=== PATIENT | female | born 1975 | race Caucasian/White ===

== ENCOUNTER → 2018-01-08 15:05 | Outpatient (CLI) | payer MEDICARE, SELFPAY ==
[2018-01-08 15:51] LABS: Absolute Lymphocyte Count 3.75 X10^3/ul (0.83-4.51); Absolute Neutrophil Count 5.1 X10^3/uL (2.0-7.7); Basophil# 0.03 X10^3/uL; Basophil% 0.3 % (0-1); Eosinophil# 0.21 X10^3/uL; Eosinophils% 2.2 % (0-5); Hematocrit 38.8 % (37-47); Hemoglobin 12.5 g/dl (12.0-15.0); Lymphocyte # 3.75 X10^3/ul (4.0); Lymphocyte % 38.9 % (19-41); Mean Corp Hgb Conc 32.2 g/gl (32-36); Mean Corpuscular Hgb 26.6 pg (27.0-32.0); Mean Corpuscular Volume 82.6 fL (81-99); Mean Platelet Vol. 9.4 fl (6.2-12.0); Monocyte# 0.58 X10^3/uL; Neutrophil # 5.06 X10^3/uL (2.7-7.7); Neutrophil % 52.4 % (47-70); POSITIVE COUNT NO; POSITIVE DIFFERENTIAL NO; POSITIVE MORPHOLOGY NO; Platelet Count 305 K/mm3 (150-450); RBC Distribution Width CV 14.9 % (11.6-14.6); RBC Distribution Width SD 45.7 fl (35.1-43.9); White Blood Count 9.7 K/mm3 (4.4-11.0)
[2018-01-08 16:15] LABS: Anion Gap 9 (5-15); BUN 10 mg/dL (7-18); BUN/Creat Ratio 10.3 RATIO (10-20); Chloride 106 mmol/L (98-107); Creatinine, Serum 0.98 mg/dL (0.55-1.02); EST Glomerular Filtration Rate 67 mL/min (>60); Est Glom Filt Rate - Afr Amer 81 mL/min (>60); Free T3 3.5 pg/mL (2.18-3.98); Glucose 91 mg/dL (74-106); Potassium 3.9 mmol/L (3.5-5.1); Sodium Level 141 mmol/L (136-145); T4 Total, Thyroxin 14.8 ug/dL (4.8-13.9); Thyroid Stim Hormone (TSH) 1.12 uIU/mL (0.358-3.74)
== END ==
PROVIDERS: Family Provider Family Medicine; PCP Family Medicine; Visit Provider Family Medicine
DX: E03.9 Hypothyroidism, unspecified (principal); R53.83 Other fatigue
CPT/HCPCS: 36415; 80048; 84436; 84443; 84481; 85025

== ENCOUNTER → 2018-07-06 15:02 | Outpatient (CLI) | payer MEDICARE, SELFPAY ==
--- NOTE | 2018-07-06 15:09 | RAD_ITS ---
STUDY: X-RAY - BILATERAL HIPS WITHOUT PELVIS REASON FOR EXAM: Female, 42 years old. Pain TECHNIQUE: 2 views of the right hip, and 2 views of the left hip were obtained. COMPARISON: None. FINDINGS: Right Hip: Normal right femoral head, neck, intertrochanteric region and visualized proximal femur. Normal right acetabulum. Normal right hip joint. Left Hip: Normal left femoral head, neck, intertrochanteric region and visualized proximal femur. Normal left acetabulum. Normal left hip joint. Normal bilateral superior and inferior pubic rami , ischial tuberosities and pubic symphysis. RAD/Hips B/L min 2 views w/ Pelvis IMPRESSION: Normal x-ray examination of the right hip. No fracture Normal x-ray examination of the left hip. No fracture Electronically Signed: Carlos Gordon MD at 6:06 EST Tel , Service support ,
== END ==
PROVIDERS: Family Provider Family Medicine; PCP Family Medicine; Referring Provider Family Medicine; Visit Provider Family Medicine
DX: M25.552 Pain in left hip (principal)
CPT/HCPCS: 73521

== ENCOUNTER → 2018-11-09 14:38 | Outpatient (CLI) | payer MEDICARE, SELFPAY ==
[2018-11-09 16:20] LABS: T4 Total, Thyroxin 11.7 ug/dL (4.8-13.9); Thyroid Stim Hormone (TSH) 7.88 uIU/mL (0.358-3.74)
== END ==
PROVIDERS: Family Provider Family Medicine; PCP Family Medicine; Referring Provider Family Medicine; Visit Provider Family Medicine
DX: E03.9 Hypothyroidism, unspecified (principal)
CPT/HCPCS: 36415; 84436; 84443; 84481

== ENCOUNTER → 2019-11-11 11:09 | Outpatient (CLI) | payer MEDICARE, SELFPAY ==
[2019-11-11 12:57] LABS: Cholesterol 245 mg/dL (200); Free T3 3.4 pg/mL (2.18-3.98); High Density Lipoprotein 50 mg/dL; Triglycerides 172 mg/dL; Very Low Density Lipoprotein 34 mg/dL (5-40)
== END ==
PROVIDERS: PCP Family Medicine; Visit Provider Family Medicine
DX: Z00.00 Encounter for general adult medical examination without abnormal findings (principal); E03.9 Hypothyroidism, unspecified
CPT/HCPCS: 36415; 80061; 84436; 84443; 84481

== ENCOUNTER → 2019-12-13 11:29 | Outpatient (CLI) | payer MEDICARE, SELFPAY ==
[2019-12-13 15:35] LABS: Thyroid Stim Hormone (TSH) 1.02 uIU/mL (0.358-3.74)
== END ==
PROVIDERS: PCP Family Medicine; Visit Provider Family Medicine
DX: E03.9 Hypothyroidism, unspecified (principal)
CPT/HCPCS: 36415; 84443

== ENCOUNTER → 2020-05-31 10:02 | Outpatient (CLI) | payer MEDICARE, SELFPAY ==
[2020-05-31 13:13] LABS: Anion Gap 8 (5-15); BUN 12 mg/dL (7-18); BUN/Creat Ratio 13.4 RATIO (10-20); Calcium,Total 9.5 mg/dL (8.5-10.1); Chloride 106 mmol/L (98-107); Cholesterol 214 mg/dL (200); Creatinine, Serum 0.89 mg/dL (0.55-1.02); EST Glomerular Filtration Rate 73 mL/min (>60); Est Glom Filt Rate - Afr Amer 88 mL/min (>60); Free T3 3.7 pg/mL (2.18-3.98); Glucose 100 mg/dL (74-106); High Density Lipoprotein 53 mg/dL; Potassium 3.8 mmol/L (3.5-5.1); Sodium Level 140 mmol/L (136-145); T4 Free Direct 1.49 ng/dL (0.76-1.46); Thyroid Stim Hormone (TSH) 0.14 uIU/mL (0.358-3.74); Triglycerides 233 mg/dL; Very Low Density Lipoprotein 47 mg/dL (5-40)
== END ==
PROVIDERS: PCP Family Medicine; Referring Provider Family Medicine; Visit Provider Family Medicine
CPT/HCPCS: 36415; 80048; 80061; 84439; 84443; 84481

== ENCOUNTER → 2020-12-11 10:51 | Outpatient (CLI) | payer MEDICARE, SELFPAY ==
[2020-12-11 13:21] LABS: Free T3 2.9 pg/mL (2.18-3.98); T4 Free Direct 1.27 ng/dL (0.76-1.46); Thyroid Stim Hormone (TSH) 0.56 uIU/mL (0.358-3.74)
== END ==
PROVIDERS: PCP Family Medicine; Visit Provider Family Medicine
DX: E03.9 Hypothyroidism, unspecified (principal)
CPT/HCPCS: 36415; 84439; 84443; 84481

== ENCOUNTER → 2021-06-13 10:58 | Outpatient (CLI) | payer MEDICARE, SELFPAY ==
--- NOTE | 2021-06-13 11:15 | RAD_ITS ---
STUDY: X-RAY - PELVIS AND BILATERAL HIPS REASON FOR EXAM: Female, 45 years old. Right hip pain. TECHNIQUE: AP view of the pelvis.? 2 views of the right hip, and 2 views of the left hip were obtained. COMPARISON: 07/06/2018. FINDINGS: There is a non-specific bowel gas pattern. Normal visualized soft tissue structures. Normal bilateral iliac wings, sacroiliac joints and visualized sacrum. Normal bilateral superior and inferior pubic rami. Normal pubic symphysis. Normal bilateral ischial tuberosities. Normal visualized right femoral head. Normal right acetabulum. Normal right hip joint. Normal visualized left femoral head. Normal left acetabulum. Normal left hip joint. RAD/Hips B/L min 2 views w/ Pelvis IMPRESSION: No interval change. No abnormality present. Electronically Signed: De Sanchez MD at 13:04 EDT , Service support ,
[2021-06-13 12:34] LABS: Free T3 3.6 pg/mL (2.18-3.98); T4 Total, Thyroxin 17.1 ug/dL (4.8-13.9); Thyroid Stim Hormone (TSH) 0.05 uIU/mL (0.358-3.74)
== END ==
PROVIDERS: PCP Family Medicine; Referring Provider Family Medicine; Visit Provider Family Medicine
DX: M25.551 Pain in right hip (principal); E03.9 Hypothyroidism, unspecified
CPT/HCPCS: 36415; 73521; 84436; 84443; 84481

== ENCOUNTER 2021-11-01 11:44 | Outpatient (CLI) | payer MEDICARE, SELFPAY ==
[2021-11-01 15:55] LABS: Free T3 2.6 pg/mL (2.18-3.98); T4 Free Direct 1.54 ng/dL (0.76-1.46); Thyroid Stim Hormone (TSH) 0.26 uIU/mL (0.358-3.74)
== END 2021-11-01 23:59 | disposition home or self-care (01) ==
LOC: MFPLAB 11:48
PROVIDERS: PCP Family Medicine; Referring Provider Family Medicine; Visit Provider Family Medicine
DX: E03.9 Hypothyroidism, unspecified (principal)
CPT/HCPCS: 36415; 84439; 84443; 84481

== ENCOUNTER → 2022-03-04 | Outpatient (CLI) | payer MEDICARE, SELFPAY ==
--- NOTE | 2022-03-04 11:02 | RAD_ITS ---
STUDY: X-RAY - RIGHT KNEE REASON FOR EXAM: Female, 46 years old. PAIN TECHNIQUE: 4 view(s) of the knee. COMPARISON: Comparison is made with prior study dated 11/18/2016. FINDINGS: Normal visualized distal femur. Normal visualized proximal tibia and fibula. Normal proximal tibiofibular articulation. There is mild degenerative arthrosis of the medial femorotibial compartment. Normal lateral femorotibial compartment. Normal patellofemoral articulation. Small joint effusion. RAD/Knee 4 or More Views IMPRESSION: Degenerative arthrosis. Small joint effusion. Electronically Signed: Carlitos Hickman MD at 13:01 EDT ,
[2022-03-04 12:47] LABS: Free T3 2.9 pg/mL (2.18-3.98); T4 Free Direct 1.36 ng/dL (0.76-1.46); Thyroid Stim Hormone (TSH) 0.07 uIU/mL (0.358-3.74)
== END | disposition home or self-care (01) ==
PROVIDERS: PCP Family Medicine; Referring Provider Family Medicine; Visit Provider Family Medicine
DX: M25.561 Pain in right knee (principal); E03.9 Hypothyroidism, unspecified
CPT/HCPCS: 36415; 73564; 84439; 84443; 84481

== ENCOUNTER → 2022-09-02 | Outpatient (CLI) | payer MEDICARE, SELFPAY ==
[2022-09-02 12:45] LABS: Free T3 3.2 pg/mL (2.18-3.98); T4 Free Direct 1.25 ng/dL (0.76-1.46)
== END | disposition home or self-care (01) ==
LOC: MFPLAB 10:15
PROVIDERS: PCP Family Medicine; Visit Provider Family Medicine
DX: E03.9 Hypothyroidism, unspecified (principal)
CPT/HCPCS: 36415; 84439; 84443; 84481

== ENCOUNTER → 2022-09-18 | Outpatient (CLI) | payer MEDICARE, SELFPAY ==
--- NOTE | 2022-09-18 07:21 | MRI_ITS ---
STUDY: MRI RIGHT KNEE REASON FOR EXAM: Female, 46 years old. RIGHT KNEE PAIN,POPPING/CRACKING TECHNIQUE: Standardized fat and water weighted pulse sequences were obtained in all 3 orthogonal planes. COMPARISON: X-ray of the right knee dated March 04, 2022 FINDINGS: A small radial tear is present at the free edge of the body of the medial meniscus. A second radial tear is present in the root insertion of the posterior horn of medial meniscus. There is also partial subluxation of the body of the medial meniscus out of the joint due to moderate joint space narrowing. There is also irregularity of the meniscal tissue in the posterior horn with mild intrasubstance signal abnormality. There is diffuse, greater than 50% thickness articular cartilage loss of the medial femorotibial compartment. Normal medial femoral condyle and tibial plateau. Normal medial collateral ligamentous complex (MCL). Normal distal semimembranosus, gracilis and semitendinosus tendons. Normal lateral meniscus. Normal hyaline cartilage of the lateral femorotibial compartment. Normal lateral femoral condyle and tibial plateau. Normal proximal tibiofibular articulation. Normal lateral collateral (fibular) ligament. Normal popliteus tendon. Normal biceps femoris tendon. The anterior cruciate ligament (ACL) is diffusely thinned but is intact and without evidence of a tear. Normal posterior cruciate ligament (PCL). Normal congruent patellofemoral articulation. There is diffuse, less than 50% thickness articular cartilage loss of the patellofemoral compartment. Normal medial and lateral patellar retinaculum. Normal quadriceps tendon. Normal patellar tendon. Normal Hoffa''s fat pad. There is a small volume joint effusion. The soft tissues are unremarkable. The otherwise visualized osseous structures are unremarkable. MRI/Lower Ext Joint Only (Routine) IMPRESSION: 1. Several radial tears of the body and posterior horn of medial meniscus with intrasubstance degeneration and meniscal tissue irregularity. 2. Moderate narrowing in the medial compartment 3. The anterior cruciate ligament (ACL) is diffusely thinned but is intact and without evidence of a tear. Electronically Signed: Toño Mirza MD at 11:02 EST ,
== END | disposition home or self-care (01) ==
LOC: MRI 07:21
PROVIDERS: PCP Family Medicine; Referring Provider Family Medicine; Visit Provider Family Medicine
DX: M25.561 Pain in right knee (principal)
CPT/HCPCS: 73721

== ENCOUNTER 2022-11-13 05:39 | Day surgery (SDC) | payer MEDICARE, SELFPAY ==
[2022-11-13] VITALS (10 sets, daily range): BP systolic 108–156; BP diastolic 69–98; PULSE 71–85; RESP 14–20; TEMP 36.1–36.8; O2SAT 94–100; BMI 39.3
[2022-11-13] MEDS: Lactated Ringers 1,000 ML 15 ML IV (06:33)
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
[2022-11-13] MEDS: Cefazolin 2 GM in 0.9% Normal Saline 100 ML IV (07:29)
[2022-11-13] MEDS: Epinephrine (1 mg/ml) 1 MG/ML VIAL OPERA.SITE (08:10)
[2022-11-13] MEDS: Bupivacaine 0.25% 30 ML Vial OPERA.SITE (08:13)
--- NOTE | 2022-11-13 08:16 | DCINST_ITS ---
Discharge Instructions Diet Discharge Diet: No restrictions Activity Discharge Activity: Return to Normal Activity and Use Crutches Ice area for (Minutes): 15 Weight Bearing Status: Weight bearing as tolerated Dressing / Incision Call your doctor if your incision/area has: Continuous Slow Oozing, Sudden Increased Bleeding, Increased Pain/ Swelling, Increased Redness, Foul Smelling Discharge and Swelling at the incision site Change Dressing in: leave in place till F/U Follow Up Care Please Follow Up With: Darius Newell MD When: 2 days Test Results: Test results from this visit will be discussed in further detail at your follow- up appointment, if applicable. Discharge Plan Admission Attending Provider: Daruis Newell Primary Care Provider: Cedric Zimmer Instructions Patient Instructions: After Knee Arthroscopy Discharge Orders/Prescriptions Prescriptions: New oxycodone-acetaminophen [Percocet] 5-325 mg tablet 1 tab PO Q4H MDD 6 PRN (Reason: pain) 5 Days Qty: 20 0RF No Action levothyroxine 137 mcg capsule 137 mcg PO DAILY meloxicam 15 mg tablet 15 mg PO DAILY Referrals / Follow Up: Cedric Zimmer MD [Primary Care Provider] - Darius Newell MD [Med Staff - Active Staff] - Disposition Disposition (needs filled in before D/C Order can be placed): Home, Self Care
--- NOTE | 2022-11-13 08:21 | OP.PCM_ITS ---
Problems Associated Problem List Diagnoses (1) Tear of medial meniscus of right knee: (2) Osteoarthritis of right knee: Report of Operation Date of Procedure: 11/13/22 Pre-Operative Diagnosis: Right knee medial meniscus tear and osteoarthritis Post-Operative Diagnosis: Same Surgery/Procedure Performed:: Right knee arthroscopy partial medial meniscectomy and debridement Surgeon: Darius Newell Type of Anesthesia: General and Local Anesthesiologist: Jorden Mena Estimated Blood Loss (mL): 10 Description of Procedure: Patient brought to the operating room theater. Placed supine on the operating room table. Stress positioner to the right side. Tourniquet applied 34 inches the right thigh appropriately padded. SCD on the nonoperative leg all bony prominences padded. 2 g IV Ancef administered prior to the start of the procedure. Lower extremity prepped and draped in the usual sterile fashion on with chlorhexidine-based prep solution allowing over 3 minutes drying time prior to draping. General anesthesia induced. Preoperative timeout performed to confirm the site patient and the surgery. Began by elevating the limb inflating the tourniquet to 250 mmHg. Made standard anterolateral and anteromedial arthroscopy portals. Examined the full intra- articular extent of the knee. Medial and lateral gutters entered no loose bodies. Slight fraying undersurface mid aspect proximally at the patella undersurface gently debrided. Trochlear groove appeared normal. Patella centered. Cartilage in the lateral side of the knee was normal, normal lateral meniscus was stable to probing. Ligamentum mucosum debrided removed ACL and PCL exam and stable to probing. Exam of the medial compartment. Grade 1-2 changes on the femur and tibial sides. Diffuse changes no obvious full-thickness chondral defects. Medial meniscus matched with the MRI findings of a radial flap tear at the anterior one third of the medial meniscus. I debrided that to stable margins took arthroscopy pictures throughout. There is also a vertically oriented longitudinal tear at the mid to posterior one third. This was slightly unstable and along the inner third therefore elected to perform partial medial meniscectomy for that tear. Rest of the meniscus was normal. I did a Gillquist view the posterior root was intact. Knee thoroughly irrigated. Meniscus was stable to probing. I ensure there is no flipped fragments of the medial meniscus below the joint line. Case terminated tourniquet let down wounds cleaned with wet and dry dressing 10 cc of quarter percent bupivacaine around the incision sites. Incisions clean and was closed with 3-0 Monocryl sutures Steri-Strips Adaptic 4 x 4 gauze ABD dressings and 6 inch Nicholas bandage sterile applied loosely wrapped. Patient woken up from the general anesthetic transferred off the operating room table and taken to postanesthetic care unit in stable condition. All sponge needle instrument counts were correct no complications plan for the patient weightbearing as tolerated on crutches follow-up in the office in 2 days time narcotic counseling given and prescription sent in as well.
[2022-11-13] MEDS: HYDROcodone Bitartrate/Apap 5/325 Tablet PO (10:15)
== END 2022-11-13 11:05 | disposition home or self-care (01) ==
LOC: SDC 05:40 → AC 05:41
PROVIDERS: PCP Family Medicine; Referring Provider Orthopaedic Surgery Sports Medicine; Visit Provider Orthopaedic Surgery Sports Medicine
PROC: (CPT 29870; principal; 2022-11-13 07:10)
DX: S83.241A Other tear of medial meniscus, current injury, right knee, initial encounter (principal); M17.11 Unilateral primary osteoarthritis, right knee; V89.2XXS Person injured in unspecified motor-vehicle accident, traffic, sequela; E03.9 Hypothyroidism, unspecified; Z79.1 Long term (current) use of non-steroidal anti-inflammatories (NSAID); Z79.890 Hormone replacement therapy; Z87.891 Personal history of nicotine dependence
CPT/HCPCS: 29881; J7120; J2405

== ENCOUNTER → 2023-07-04 | Outpatient (CLI) | payer MEDICARE, SELFPAY ==
[2023-07-04 13:21] LABS: ALB/GLOB Ratio 0.8 RATIO (0.9-2.4); AST(SGOT) 15 U/L (15-37); Alanine Aminotransfer ALT/SGPT 27 U/L (13-56); Albumin, Serum 3.6 g/dL (3.2-5.0); Alkaline Phosphatase 98 U/L (45-117); Anion Gap 7 (5-15); BUN 14 mg/dL (7-18); BUN/Creat Ratio 18.2 RATIO (10-20); Calcium,Total 9.1 mg/dL (8.5-10.1); Chloride 104 mmol/L (98-107); Cholesterol 239 mg/dL (200); Creatinine, Serum 0.77 mg/dL (0.55-1.02); EST Glomerular Filtration Rate 85 mL/min (>60); Est Glom Filt Rate - Afr Amer 103 mL/min (>60); Free T3 2.9 pg/mL (2.18-3.98); Globulin 4.4 g/dL (2.2-4.2); Glucose 82 mg/dL (74-106); High Density Lipoprotein 52 mg/dL; Sodium Level 138 mmol/L (136-145); T4 Free Direct 1.09 ng/dL (0.76-1.46); Thyroid Stim Hormone (TSH) 3.89 uIU/mL (0.358-3.74); Triglycerides 204 mg/dL; Very Low Density Lipoprotein 41 mg/dL (5-40)
== END | disposition home or self-care (01) ==
LOC: MFPLAB 09:49
PROVIDERS: PCP Family Medicine; Visit Provider Family Medicine
DX: E03.9 Hypothyroidism, unspecified (principal); E78.5 Hyperlipidemia, unspecified
CPT/HCPCS: 36415; 80053; 80061; 84439; 84443; 84481

== ENCOUNTER → 2023-10-02 | Outpatient (CLI) | payer MEDICARE, MEDICAID, SELFPAY ==
--- OUTSIDE RECORDS SUMMARY | 2023-10-02 13:11 | XMS RPT_ITS | CCD ---
Author Name Unknown Address [address] [place] [address] Organization [facility] Care Team Providers Care Stepdown Nurse Name Role Phone MARGOTH DARBY Admitting Unavailable MARGOTH DARBY Attending Unavailable NO, DOCTOR ON Referring Unavailable MARGOTH DARBY Primary Care Unavailable NO, DOCTOR ON Consulting Unavailable Unavailable Primary Care Provider MD NEHEMIAS Menendez Attending Unavailable ELAN MULLER, DR. CEDRIC Chong Primary Care Unavaila SIDNEY Nation DO Attending Unavailable ELAN MULLER, DR. CEDRIC Chong Primary Care Unavaila CESAR Covarrubias Consulting Unavailable ELAN MULLER, DR. CEDRIC Chong Primary Care Unavaila MILTON Lui Attending Unavailable Cedric Ansari MD Primary Care Provider CEDRIC ANSARI Primary Care Unavailable JAH SOL (PA-C) Attending Unavail able Unavailable Primary Care Provider Unavailabl e Unavailable Primary Care Provider Unavailedwina e Allergies Allergy Classification Reported Allergen(s) Allergy Type Date of Onset Reaction(s) Facility (1 source) traM[facility]ol Drug Allergy [facility] Repository (1 source) traMADol Drug Allergy [facility] Repository (2 sources) Amoxicillin / Clavulanate; Translations: [AMOXICILLIN-POT CLAVULANATE] Drug Allergy 07-19-2022 GI Upset [facility] Medications Current Medications Medication Drug Class(es) Dates Sig (Normalized) Sig (Original) chlorhexidine gluconate 1.2 mg/ml mouthwash (3 sources) Start: 10-15-2018 take 15 mL by mouth twice daily chlorhexidine (PERIDEX) 0.12 % oral solution Indications: Irregular alveolar process of jaw , Torus mandibularis Take 15 mL by mouth 2 times daily. 1 Bottle 3 10/15/2018 Active levothyroxine sodium 0.2 mg oral tablet (5 sources) l-Thyroxine take 1 tablet by mouth once daily levothyroxine (SYNTHROID) 200 MCG tablet Take 200 mcg by mouth daily. 0 Active Completed/Discontinued Medications Medication Drug Class(es) Dates Sig (Normalized) Sig (Original) benzonatate 100 mg oral capsule (1 source) Non-narcotic Antitussive Start: 07-19-2022 take 2 capsules by mouth every eight hours as needed benzonatate (TESSALON PERLES) 100 mg capsule Take 2 capsules by mouth three times daily as needed for cough. 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-2018 Episodic Other connective tissue disease (1 source) Tibialis tendinitis; Translations: [Posterior tibial tendinitis, unspecified leg] Onset: 06-29-2012 06-29-2012 Episodic Other non-traumatic joint disorders (1 source) Ankle pain; Translations: [Pain in unspecified ankle and joints of unspecified foot] Onset: 06-29-2012 06-29-2012 Episodic Results Test Name Value Interpretation Reference Range Facil ity Vital Signs Date Time Vital Sign Value Performing Clinician Faci lity 07-19-2022 15:48-0500 Body temperature 99.19 [degF] Jah Sol PA-C Work Phone: [facility] 07-19-2022 15:48-0500 Body weight 98.43 kg Jah Sol PA-C Work Phone: [facility] 07-19-2022 15:48-0500 Diastolic blood pressure 76 mm[Hg] Jah Sol PA-C Work Phone: [facility] 07-19-2022 15:48-0500 Heart rate 98 /min Jah Sol PA-C Work Phone: [facility] 07-19-2022 15:48-0500 Respiratory rate 18 /min Jah Sol PA-C Work Phone: [facility] 07-19-2022 15:48-0500 SaO2% (BldA) [Mass fraction] 98 % Jah Sol PA-C Work Phone: [facility] 07-19-2022 15:48-0500 Systolic blood pressure 143 mm[Hg] Jah Sol PA-C Work Phone: [facility] Encounters Encounter Date Encounter Type Care Provider Facility Start: 11-25-[address] [facility] Start: 08-27-2022 Letter encounter [facility] nohemi Start: 07-19-2022 End: 07-19-2022 ambulatory CEDRIC ANSARI Facility:[id number] Start: 07-19-2022 End: 07-19-2022 Office outpatient visit 15 minutes Jah Newell) Sweta MANN Work Phone: [facility] Plan of Treatment Date Care Activity Detail Author Start: 11-22-2025 Shingles (RZV) Vacci ne (1 of 2) Shingles (RZV) Vaccine (1 of 2) [facility] Start: 05-14-2024 LIPID SCREEN LIPID SCREEN [facility] Start: 05-18-2022 Influenza vaccination Influenza Vacc ine (#1) [facility] Start: 05-14-2022 DIABETES SCREEN DIABETES SCREEN [facility] Start: 10-18-2021 COVID-19 Vaccine (4 - Booster for Pfizer series) COVID-19 Vaccine (4 - Booster for Pfizer series) [facility] Start: 08-18-2021 DEPRESSION ASSESSMENT DEPRESSION ASS ESSMENT [facility] Start: 11-22-2020 Cholesterol [Mass/vo lume] in Serum or Plasma Cholesterol [facility] Start: 11-22-2020 COLOGUARD (FIT-DNA) COLOGUARD (FIT-D NA) [facility] Start: 11-22-2020 Colonoscopy COLONOSCOPY [facility] Start: 11-22-2020 COLORECTAL CANCER SCREENING COLORECTAL CANCER SCREENING [facility] Start: 11-22-[address] COLONOGRAPHY [facility] Start: 11-22-2020 FECAL OCCULT BLOOD FECAL OCCULT BLOO D [facility] Start: 11-22-2020 Screening for malign ant neoplasm of colon [facility] Start: 11-22-2020 SIGMOIDOSCOPY SIGMOIDOSCOPY [facility] Start: 05-18-2019 Annual wellness visit Annual W ellness Visit ([id number]) [facility] Start: 2015 Mammography MAMMOGRAM [facility] Start: 2015 Screening for malign ant neoplasm of breast Mammography [facility] Start: 11-22-2005 HPV TESTING HPV TESTING [facility] Start: 11-22-1996 PAP TESTING PAP TESTING [facility] Start: 11-22-1996 Screening for malign ant neoplasm of cervix Pap Smear [facility] Start: 11-22-1994 Urine microalbumin profile DTAP,TDAP ,TD (1 - Tdap) [facility] Start: 11-22-1993 Hepatitis C screening Hepatitis C An tibody [facility] Start: 11-22-1993 HEPATITIS C SCREENING HEPATITIS C SC REENING [facility] Start: 11-22-1993 HIV SCREENING HIV SCREENING [facility] Start: 11-22-1993 Tetanus + diphtheria + acellular pertussis vaccine (product) Tdap Booster [facility] Start: 11-22-1990 HIV screening HIV Test [facility] Start: 11-22-1981 PNEUMOCOCCAL (1 - PCV) PNEUMOCOCCAL (1 - PCV) [facility] Start: 1975 HEPATITIS B (1 of 3 - 3-dose series) HEPATITIS B (1 of 3 - 3-dose series) [facility] Start: 1975 Screening for malign ant neoplasm of colon Colonoscopy [facility] Immunizations Immunization Date Immunization Notes Care Provider Fa cility 05-31-2020 influenza, injectabl e, quadrivalent, preservative free [facility] 05-31-2020 influenza virus vacc ine, unspecified formulation [facility] 05-12-2019 influenza, seasonal, injectable [facility] 07-09-2017 influenza, injectabl e, quadrivalent, contains preservative [facility] 06-07-2015 [facility] Payers Date Payer Category Payer Unknown [id number] 2021 Private Health Insurance [id number] 2018 Medicaid [id number] 2018 Medicare [id number] 1975 Unknown [id number] 1975 Unknown [id number] 1975 Unknown [id number] 1975 Unknown [id number] Medicaid [id number] Social History Date Type Detail Facility Start: 08-28-2018 End: 09-18-2018 Tobacco smoking status [facility] Occasional tobacco smoker [facility] History of tobacco use [facility]igarette Smoker [facility] Start: 08-28-2018 End: 09-18-2018 Cigarettes smoked current (pack per day) - Reported 0.5 [facility] Start: 08-28-2018 End: 09-18-2018 Tobacco use and exposure Smokeless tobacco non-user [facility] Start: 10-16-2018 End: 07-19-2022 Alcohol intake Current drinker of alcohol (finding) [facility] Start: 09-18-2018 History SDOH Alcohol Comment rare [facility] Start: 1975 Sex Assigned At Not on file [facility] Start: 07-19-2022 Tobacco smoking stat [facility] Smokes tobacco daily [facility] Start: 07-09-2022 End: 07-19-2022 Exposure to SARS-CoV-2 (event) Not sure [facility] Progress note 07-19-2022 Note Date & Type Note Facility 07-19-2022 Note HNO ID: [id number] Author: Jah Newell) KATHI Sol Service: ? Author Type: Physician [employer] Type: Progress Notes Filed: 07/19/2022 4:24 PM Note Text: Jyothi WATSON is an 46 year old female presenting with Cough (Over 1 week) HPI: The patient states that they have had a cough, runny nose and nasal congestion for the last 7days. Cough is non productive of sputum. The patient denies sore throat without pain with swallowing/difficulty swallowing. Denies fever or chills. Patient denies CP or dyspnea. No vomiting or diarrhea. Patient states her symptoms have resolved except for the lingering cough. Patient states she does not feel sick. Patient states she just wants this cough to go away. The patient presents for evaluation. History reviewed. No pertinent past medical history. ACTIVE PROBLEM LIST Tibialis Tendinitis Ankle Pain Current Outpatient Medications Medication Sig Dispense Refill dicyclomine (BENTYL) 20 mg tablet TAKE 1 TABLET BY MOUTH THREE TIMES DAILY FOR 3 DAYS, THEN 1 TABLET THREE TIMES DAILY NEEDED FOR ABDOMINAL DISCOMFORT ibuprofen (MOTRIN) 600 mg tablet TAKE 1 TABLET BY MOUTH EVERY 6 HOURS FOR 7 DAYS WITH FOOD OR MILK loratadine (CLARITIN) 10 mg tablet Take 10 mg by mouth. benzonatate (TESSALON PERLES) 100 mg capsule Take 2 capsules by mouth three times daily as needed for cough. 15 capsule 0 methylPREDNISolone (MEDROL, LOREN,) 4 mg Dose-Pack Take by mouth per package instructions 21 tablet 0 Levothyroxine 50 mcg cap Take by mouth once daily. Levothyroxine 75 mcg cap Take by mouth once daily. No current facility-administered medications for this visit. Social History Tobacco Use Smoking status: Every Day Types: Cigarettes Smokeless tobacco: Never Vaping Use Vaping Use: Never used Substance Use Topics Alcohol use: Yes Drug use: Not Currently Alcohol Use: Yes Tobacco Use: Types: Cigarettes History reviewed. No pertinent family history. ROS: Unless otherwise stated in this report the patient's positive and negative responses for review of systems for constitutional, eyes, ENT, cardiovascular, respiratory, gastrointestinal, neurological, , musculoskeletal, and integument systems and related systems to the presenting problem are either stated in the history of present illness or were not pertinent or were negative for the symptoms and/or complaints related to the presenting medical problem. BP 143/76 Pulse 98 Temp 99.2 Resp 18 Wt 217 lb (98.4kg) SpO2 98% Physical Exam: Const: Appears healthy and well developed. No signs of acute distress present. Vitals reviewed per triage. Head/Face: Normocephalic, atraumatic. Facies is symmetric. Eyes: PERRL. ENMT: Tympanic membranes are pearly ramos with good light reflex bilaterally. Nares with clear rhinorrhea. Buccal mucosa is moist. No erythema in the posterior pharynx without edema of oropharynx or petechiae of palate. Neck: Supple and symmetric. Palpation reveals no adenopathy. No meningeal signs. Trachea midline. Resp: Lungs are clear to auscultation bilaterally without wheezes, rhonchi, or crackles. Chest expansion was symmetrical without accessory muscle use noted. CV: S1 is normal. S2 is normal. Musculo: Patient moves extremities without pain or limitation. Pulses are equal bilaterally. Skin: Skin is warm and dry. Neuro: Alert and oriented x3. Speech is articulate and fluent. Psych: Mood and affect are appropriate to situation. Jyothi was seen today for cough. Diagnoses and all orders for this visit: Viral upper respiratory tract infection Other orders - benzonatate (TESSALON PERLES) 100 mg capsule; Take 2 capsules by mouth three times daily as needed for cough. - methylPREDNISolone (MEDROL, LOREN,) 4 mg Dose-Pack; Take by mouth per package instructions Jah Sol PA-C, KATHI Return for FU with PCP in 5 days. ER warnings signs given!. [facility] History of Present illness Narrative 07-19-2022 Jah Fitch (Kathi) KATHI Sol - 07/19/2022 4:03 PM EST Note Date & Type Note Facility 07-19-2022 History of Presen t illness Narrative Jyothi WATSON is an 46 year old female presenting with Cough (Over 1 week) HPI: The patient states that they have had a cough, runny nose and nasal congestion for the last 7days. Cough is non productive of sputum. The patient denies sore throat without pain with swallowing/difficulty swallowing. Denies fever or chills. Patient denies CP or dyspnea. No vomiting or diarrhea. Patient states her symptoms have resolved except for the lingering cough. Patient states she does not feel sick. Patient states she just wants this cough to go away. The patient presents for evaluation. History reviewed. No pertinent past medical history. ACTIVE PROBLEM LIST Tibialis Tendinitis Ankle Pain Current Outpatient Medications Medication Sig Dispense Refill dicyclomine (BENTYL) 20 mg tablet TAKE 1 TABLET BY MOUTH THREE TIMES DAILY FOR 3 DAYS, THEN 1 TABLET THREE TIMES DAILY NEEDED FOR ABDOMINAL DISCOMFORT ibuprofen (MOTRIN) 600 mg tablet TAKE 1 TABLET BY MOUTH EVERY 6 HOURS FOR 7 DAYS WITH FOOD OR MILK loratadine (CLARITIN) 10 mg tablet Take 10 mg by mouth. benzonatate (TESSALON PERLES) 100 mg capsule Take 2 capsules by mouth three times daily as needed for cough. 15 capsule 0 methylPREDNISolone (MEDROL, LOREN,) 4 mg Dose-Pack Take by mouth per package instructions 21 tablet 0 Levothyroxine 50 mcg cap Take by mouth once daily. Levothyroxine 75 mcg cap Take by mouth once daily. No current facility-administered medications for this visit. Social History Tobacco Use Smoking status: Every Day Types: Cigarettes Smokeless tobacco: Never Vaping Use Vaping Use: Never used Substance Use Topics Alcohol use: Yes Drug use: Not Currently Alcohol Use: Yes Tobacco Use: Types: Cigarettes History reviewed. No pertinent family history. ROS: Unless otherwise stated in this report the patient's positive and negative responses for review of systems for constitutional, eyes, ENT, cardiovascular, respiratory, gastrointestinal, neurological, , musculoskeletal, and integument systems and related systems to the presenting problem are either stated in the history of present illness or were not pertinent or were negative for the symptoms and/or complaints related to the presenting medical problem. BP 143/76 Pulse 98 Temp 99.2 Resp 18 Wt 217 lb (98.4kg) SpO2 98% Physical Exam: Const: Appears healthy and well developed. No signs of acute distress present. Vitals reviewed per triage. Head/Face: Normocephalic, atraumatic. Facies is symmetric. Eyes: PERRL. ENMT: Tympanic membranes are pearly ramos with good light reflex bilaterally. Nares with clear rhinorrhea. Buccal mucosa is moist. No erythema in the posterior pharynx without edema of oropharynx or petechiae of palate. Neck: Supple and symmetric. Palpation reveals no adenopathy. No meningeal signs. Trachea midline. Resp: Lungs are clear to auscultation bilaterally without wheezes, rhonchi, or crackles. Chest expansion was symmetrical without accessory muscle use noted. CV: S1 is normal. S2 is normal. Musculo: Patient moves extremities without pain or limitation. Pulses are equal bilaterally. Skin: Skin is warm and dry. Neuro: Alert and oriented x3. Speech is articulate and fluent. Psych: Mood and affect are appropriate to situation. Jyothi was seen today for cough. Diagnoses and all orders for this visit: Viral upper respiratory tract infection Other orders - benzonatate (TESSALON PERLES) 100 mg capsule; Take 2 capsules by mouth three times daily as needed for cough. - methylPREDNISolone (MEDROL, LOREN,) 4 mg Dose-Pack; Take by mouth per package instructions Jah Sol PA-C, KATHI Return for FU with PCP in 5 days. ER warnings signs given!. documented in this encounter [facility] Evaluation note Note Date & Type Note Facility documented in this encounter [facility] Summary Purpose Family History No Family History Records FoundNo Family History Records FoundNo Family History Records Found Advance Directives No Advanced Directives Records FoundNo Advanced Directives Records FoundNo Advanced Directives Records Found Additional Source Comments INFORMATION SOURCE (unrecogn ized section and content) DATE CREATED AUTHOR AUTHOR'S ORGANIZ ATION 06/15/2022 [facility] ([place]) DATE CREATED AUTHOR AUTHOR'S ORGANIZ ATION 07/20/2022 [facility] nter Source Comments (unrecognize d section and content) In the event this informatio n is protected by the Federal Confidentiality of Alcohol and Drug Abuse Patient Records regulations: The Federal rules restrict any use of the information to criminally investigate or prosecute any alcohol or drug abuse patient.[facility] Reason for Visit (unrecogniz ed section and content) Care Teams (unrecognized sec tion and content) FOR RECORDS PERTAINING TO PATIENTS WHO ARE OR HAVE BEEN ENROLLED IN A CHEMICAL DEPENDENCY/SUBSTANCEABUSE PROGRAM, SOME INFORMATION MAY BE OMITTED. This clinical summary was aggregated from multiple sources. Caution should be exercised in using it in the provision of clinical care. This summary normalizes information from multiple sources, and as a consequence, information in this document may materially change the coding, format and clinical context of patient data. In addition, data may be omitted in some cases. CLINICAL DECISIONS SHOULD BE BASED ON THE PRIMARY CLINICAL RECORDS. [employer] [facility]. provides no warranty or guarantee of the accuracy or completeness of information in this document.
[2023-10-02 13:51] LABS: Cholesterol 172 mg/dL (200); Free T3 2.6 pg/mL (2.18-3.98); High Density Lipoprotein 58 mg/dL; T4 Free Direct 1.13 ng/dL (0.76-1.46); Triglycerides 127 mg/dL; Very Low Density Lipoprotein 25 mg/dL (5-40)
== END | disposition home or self-care (01) ==
LOC: MFPLAB 10:58
PROVIDERS: PCP Family Medicine; Visit Provider Family Medicine
DX: E03.9 Hypothyroidism, unspecified (principal); E78.5 Hyperlipidemia, unspecified
CPT/HCPCS: 36415; 80061; 84439; 84443; 84481

== ENCOUNTER → 2024-03-31 | Outpatient (CLI) | payer MEDICARE, MEDICAID, SELFPAY ==
[2024-03-31 15:31] LABS: ALB/GLOB Ratio 1.1 RATIO (0.9-2.4); AST(SGOT) 15 U/L (15-37); Alanine Aminotransfer ALT/SGPT 21 U/L (13-56); Albumin, Serum 3.9 g/dL (3.2-5.0); Alkaline Phosphatase 98 U/L (45-117); Anion Gap 6 (5-15); BUN 12 mg/dL (7-18); Calcium,Total 9.3 mg/dL (8.5-10.1); Chloride 107 mmol/L (98-107); Cholesterol 171 mg/dL (200); EST Glomerular Filtration Rate 81 mL/min (>60); Est Glom Filt Rate - Afr Amer 98 mL/min (>60); Free T3 3.1 pg/mL (2.18-3.98); Globulin 3.7 g/dL (2.2-4.2); Glucose 95 mg/dL (74-106); High Density Lipoprotein 58 mg/dL; Protein, Total 7.6 g/dL (6.4-8.2); Sodium Level 140 mmol/L (136-145); Thyroid Stim Hormone (TSH) 0.559 uIU/mL (0.358-3.740); Triglycerides 135 mg/dL; Very Low Density Lipoprotein 27 mg/dL (5-40)
== END | disposition home or self-care (01) ==
LOC: MFPLAB 11:33
PROVIDERS: PCP Family Medicine; Visit Provider Family Medicine
DX: E03.9 Hypothyroidism, unspecified (principal); E78.5 Hyperlipidemia, unspecified
CPT/HCPCS: 36415; 80053; 80061; 84439; 84443; 84481

== ENCOUNTER → 2024-09-29 | Outpatient (CLI) | payer MEDICARE, MEDICAID, SELFPAY ==
[2024-09-29 15:35] LABS: T3 Total - Triiodothyronine 1.28 ng/mL (0.6-1.81)
[2024-09-29 15:55] LABS: ALB/GLOB Ratio 0.9 RATIO (0.9-2.4); AST(SGOT) 24 U/L (15-37); Alanine Aminotransfer ALT/SGPT 23 U/L (13-56); Albumin, Serum 3.9 g/dL (3.2-5.0); Alkaline Phosphatase 93 U/L (45-117); Anion Gap 9 (5-15); BUN 15 mg/dL (7-18); Calcium,Total 9.4 mg/dL (8.5-10.1); Chloride 104 mmol/L (98-107); Cholesterol 190 mg/dL (200); Creatinine, Serum 0.79 mg/dL (0.55-1.02); EST Glomerular Filtration Rate 82 mL/min (>60); Est Glom Filt Rate - Afr Amer 100 mL/min (>60); Globulin 4.2 g/dL (2.2-4.2); Glucose 89 mg/dL (74-106); High Density Lipoprotein 60 mg/dL; Potassium 3.8 mmol/L (3.5-5.1); Protein, Total 8.1 g/dL (6.4-8.2); Sodium Level 138 mmol/L (136-145); T4 Free Direct 1.24 ng/dL (0.76-1.46); Triglycerides 178 mg/dL; Very Low Density Lipoprotein 36 mg/dL (5-40)
== END | disposition home or self-care (01) ==
LOC: MTLAB 11:03
PROVIDERS: PCP Family Medicine; Referring Provider Family Medicine; Visit Provider Family Medicine
DX: E78.5 Hyperlipidemia, unspecified (principal); E03.9 Hypothyroidism, unspecified
CPT/HCPCS: 36415; 80053; 80061; 84439; 84443; 84480; 84481

== ENCOUNTER → 2025-03-30 | Outpatient (CLI) | payer MEDICARE, MEDICAID, SELFPAY ==
--- NOTE | 2025-03-30 11:16 | RAD_ITS ---
PROCEDURE: KNEE 4 OR MORE VIEWS 03/30/2025 REASON FOR EXAM: ARTHRITIS OF KNEE, RIGHT TECHNIQUE: KNEE 4 OR MORE VIEWS Laterality: Right COMPARISON: 03/04/2022 FINDINGS: Moderate medial femorotibial joint space narrowing, subchondral sclerosis, osteophytes. No acute bone, joint, or soft tissue pathology. RAD/Knee 4 or More Views IMPRESSION: Moderate right knee osteoarthritis. Reading [facility]
[2025-03-30 13:17] LABS: AST(SGOT) 23 U/L (<=31); Alanine Aminotransfer ALT/SGPT 18 U/L (<=34); Albumin, Serum 4.3 g/dL (3.5-5.0); Alkaline Phosphatase 105 U/L (35-104); Anion Gap 12 (5-15); BUN 10 mg/dL (4-19); BUN/Creat Ratio 14.4 RATIO (10-20); Calcium,Total 9.5 mg/dL (7.6-11.0); Carbon Dioxide 25.1 mmol/L (21.0-32.0); Chloride 103 mmol/L (98-108); Cholesterol 174 mg/dL (<=200); Free T3 3.3 pg/mL (2.18-3.98); Globulin 3.1 g/dL (2.2-4.2); Glucose 99 mg/dL (70-99); Low Density Lipoprotein Calc. 87 mg/dL; Potassium 4.1 mmol/L (3.3-5.1); Triglycerides 162 mg/dL; Very Low Density Lipoprotein 32 mg/dL (5-40); cholesterol:hdl ratio screen 3.19
--- OUTSIDE RECORDS SUMMARY | 2025-03-30 19:36 | XMS RPT_ITS | CCD ---
Author Organization [facility] Inform ion Partnership [facility] Care Team Providers Care Facility Sales And Admin Name Role Phone MARGOTH DARBY Admitting Unavailable MARGOTH DARBY Attending Unavailable NO, DOCTOR ON Referring Unavailable MARGOTH DARBY Primary Care Unavailable NO, DOCTOR ON Consulting Unavailable Unavailable Primary Care Provider Mahsa Ansari MD, Cedric Mar Primary Care Provider [phone] CEDRIC ANSARI Primary Care Unavailable JAH GOLDSTEIN (PA-C) Attending Unavail able Unavailable Primary Care Provider Dr. Cedric Martinez Primary Care Provider [phone] Dr. Cedric Ansari Referring Provider [phone] MD Darius Newell Attending Provider MD Darius Newell Referring Provider MD Darius Newell Other Provider Unavailable Primary Care Provider DR ECDRIC Martinez MD Primary Care Mahsa CAMEJO MD, LUIS A Delgado Attending Unavailable Cedric Ansari Primary Care Unavailable Cedric Ansari Attending Unavailable Cedric Ansari Attending Unavailable Cedric Ansari Referring Unavailable Cedric Ansari Primary Care Unavailable Allergies Allergy Classification Reported Allergen(s) Allergy Type Date of Onset Reaction(s) Facility (1 source) traMADol Drug Allergy [facility] (1 source) traMADol Drug Allergy [facility] (2 sources) Amoxicillin / Clavulanate; Translations: [AMOXICILLIN-POT CLAVULANATE] Drug Allergy 07-19-2022 GI Upset [facility] (2 sources) Amoxicillin Drug Allergy 11-13-2022 Upset Stomach [facility] (2 sources) Clavulanate Drug Allergy 11-13-2022 Upset Stomach [facility] (1 source) Amoxicillin Drug Allergy 11-28-2022 [facility] (1 source) Clavulanate Drug Allergy 11-28-2022 [facility] Medications Current Medications Medication Drug Class(es) Dates Sig (Normalized) Sig (Original) chlorhexidine gluconate 1.2 mg/ml mouthwash (4 sources) Start: 10-15-2018 take 15 mL by mouth twice daily chlorhexidine (PERIDEX) 0.12 % oral solution Indications: Irregular alveolar process of jaw , Torus mandibularis Take 15 mL by mouth 2 times daily. 1 Bottle 3 10/15/2018 Active levothyroxine sodium 0.137 mg oral capsule (12 sources) l-Thyroxine Start: 09-27-2022 take 137 ug by mouth once daily Levothyroxine Active 137 MCG PO DAILY September 27, 2022 12:00am Start: 06-03-2013 End: 09-27-2022 take 1 tablet by mouth once daily Levothyroxine (Levoxyl) 50 MCG tablet Discontinued 50 MCG PO DAILY June 02, 2013 11:00pm September 27, 2022 10:20am take 1 tablet by aileen th once daily levothyroxine (SYNTHROID) 200 MCG tablet Take 200 mcg by mouth daily. Active Levothyroxine 75 mcg cap Take by mouth once daily. 0 Active Levothyroxine 50 mcg cap Take by mouth once daily. 0 Active Comment on above: Take by mouth once d aily. loratadine 10 mg oral tablet (5 sources) take 1 tablet by mouth once daily loratadine (CLARITIN) 10 MG tablet Take 10 mg by mouth daily. Active Comment on above: Take 10 mg by mouth. meloxicam 15 mg oral tablet (6 sources) Nonsteroidal Anti-inflammatory Drug Start: 3 take 15 mg by mouth once daily Meloxicam Active 15 MG PO DAILY September 27, 2022 12:00am MELOXICAM ORAL T rafael by mouth. Active MELOXICAM ORAL T rafael by mouth. 0 Active Completed/Discontinued Medications Medication Drug Class(es) Dates Sig (Normalized) Sig (Original) acetaminophen 325 mg / HYDROcodone bitartrate 5 mg oral tablet (4 sources) Opioid Agonist Start: 06-04-2013 End: 09-27-2022 take 1 tablet by mouth every four hours as needed Hydrocodone-Aceta minophen Discontinued 1 - 2 TABLET PO EVERY 4 HOURS NEEDED 60 June 03, 2013 11:00pm September 27, 2022 10:20am acetaminophen 325 mg / oxyCODONE hydrochloride 5 mg oral tablet (2 sources) Opioid Agonist Start: 11-13-2022 End: 12-26-2022 take 1 tablet by mouth every four hours Oxycodone-Acetami nophen (Percocet) 5-325 mg tablet Discontinued 1 TABLET PO Q4H 20 5 November 13, 2022 December 26, 2022 8:57am benzonatate 100 mg oral capsule (1 source) Non-narcotic Antitussive Start: 07-19-2022 take 2 capsules by mouth every eight hours as needed benzonatate (TESSALON PERLES) 100 mg capsule Take 2 capsules by mouth three times daily as needed for cough. 15 capsule 0 07/19/2022 Active Comment on above: Take 2 capsules by m outh three times daily as needed for cough. dicyclomine hydrochloride 20 mg oral tablet (1 source) Anticholinergic Start: 06-03-2022 take 1 tablet by mouth three times daily as needed, then take 1 tablet by mouth three times daily as needed dicyclomine (BENTYL) 20 mg tablet TAKE 1 TABLET BY MOUTH THREE TIMES DAILY FOR 3 DAYS, THEN 1 TABLET THREE TIMES DAILY NEEDED FOR ABDOMINAL DISCOMFORT 0 06/03/2022 Active Comment on above: TAKE 1 TABLET BY AILEEN TH THREE TIMES DAILY FOR 3 DAYS, THEN 1 TABLET THREE TIMES DAILY NEEDED FOR ABDOMINAL DISCOMFORT ibuprofen 600 mg oral tablet (9 sources) Nonsteroidal Anti-inflammatory Drug Start: 04-09-2022 take 1 tablet by mouth every six hours at mealtime ibuprofen (MOTRIN) 600 mg tablet TAKE 1 TABLET BY MOUTH EVERY 6 HOURS FOR 7 DAYS WITH FOOD OR MILK 0 04/09/2022 Active Start: 10-22-2018 take 1 tablet by aileen th every six hours as needed for pain ibuprofen (MOTRIN) 800 MG tablet Indications: Post-operative state Take 1 Tablet by mouth every 6 hours as needed for Pain. 60 Tablet 1 10/22/2018 Active Start: 10-15-2018 take 1 tablet by aileen th every eight hours as needed for pain ibuprofen (MOTRIN) 800 MG tablet Indications: Irregular alveolar process of jaw , Torus mandibularis Take 1 Tablet by mouth every 8 hours as needed for Pain. 30 Tablet 3 10/15/2018 Active Comment on above: TAKE 1 TABLET BY AILEEN TH EVERY 6 HOURS FOR 7 DAYS WITH FOOD OR MILK methylPREDNISolone 4 mg oral tablet (1 source) Corticosteroid Start: 07-19-20 methylPREDNISolone (MEDROL, LOREN,) 4 mg Dose-Pack Take by mouth per package instructions 21 tablet 0 07/19/2022 Active Comment on above: Take by mouth per pa ckage instructions Problems Active Problems Problem Classification Problem Date Documented Date Episodic/Chronic Disorders of lipid metabolism (1 source) Hyperlipidemia, unspecified; Translations: [Hyperlipidemia, unspecified] Onset: 11-22-2024 Chronic Joint disorders and dislocations; trauma-related (4 sources) Tear of medial meniscus of knee; Translations: [Other tear of medial meniscus, current injury, right knee, initial encounter] 09-27-2022 Episodic Osteoarthritis (4 sources) Osteoarthritis of right knee joint; Translations: [Unilateral primary osteoarthritis, right knee] 09-27-2022 Chronic Other upper respiratory infections (2 sources) Viral upper respiratory tract infection; Translations: [Acute upper respiratory infection, unspecified] Onset: 07-19-2022 Episodic Thyroid disorders (3 sources) Hypothyroidism; Translations: [Hypothyroidism, unspecified] Onset: 04-26-2024 09-27-2022 Chronic Past or Other Problems Problem Classification Problem Date Documented Da te Episodic/Chronic Disorders of teeth and jaw (4 sources) Torus mandibularis; 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-2018 Episodic Other connective tissue disease (1 source) Tibialis tendinitis; Translations: [Posterior tibial tendinitis, unspecified leg] Onset: 06-29-2012 06-29-2012 Episodic Other non-traumatic joint disorders (1 source) Ankle pain; Translations: [Pain in unspecified ankle and joints of unspecified foot] Onset: 06-29-2012 06-29-2012 Episodic Results Test Name Value Interpretation Reference Range Facility Comprehensive Metabolic Prof joaquín 09-29-2024 Albumin [Mass/Vol] 3.9 g/dL Normal 3.2-5.0 [facility] Comment on above: Performed By: #### L 501.9186, L500.4050, L501.60554, L501.9520, L506.0400, L500.4100 #### [facility] [address] [place], [address] Albumin/Globulin [Mass ratio] 0.9 {ratio} Normal 0.9-2.4 [facility] Comment on above: Performed By: #### L 501.9186, L500.4050, L501.49191, L501.9520, L506.0400, L500.4100 #### [facility] [address] [place], [address] ALK P 93 U/L Normal 45-117 [facility] Comment on above: Performed By: #### L 501.9186, L500.4050, L501.92684, L501.9520, L506.0400, L500.4100 #### [facility] [address] [place], [address] ALT [Catalytic activity/Vol] 23 U/L Normal 13-56 [facility] Comment on above: Performed By: #### L 501.9186, L500.4050, L501.97583, L501.9520, L506.0400, L500.4100 #### [facility] [address] [place], [address] AST [Catalytic activity/Vol] 24 U/L Normal 15-37 [facility] Comment on above: Performed By: #### L 501.9186, L500.4050, L501.30371, L501.9520, L506.0400, L500.4100 #### [facility] [address] [place], [address] Bilirubin [Mass/Vol] 0.30 mg/dL Normal 0.20-1.[address] [facility] Comment on above: Result Comment: For patients on eltrombopag therapy, use of Dimension [place] TBIL is not recommended. Performed By: #### L 501.9186, L500.4050, L501.50470, L501.9520, L506.0400, L500.4100 #### [facility] [address] [place], [address] BUN/CRE 19.0 RATIO Normal 10-20 [facility] Comment on above: Performed By: #### L 501.9186, L500.4050, L501.34934, L501.9520, L506.0400, L500.4100 #### [facility] [address] [place], [address] CA,Total 9.4 mg/dL Normal 8.5-10.1 [facility] Comment on above: Performed By: #### L 501.9186, L500.4050, L501.81101, L501.9520, L506.0400, L500.4100 #### [facility] [address] [place], [address] Chloride [Moles/Vol] 104 mmol/L Normal 98-[address] [facility] Comment on above: Performed By: #### L 501.9186, L500.4050, L501.15431, L501.9520, L506.0400, L500.4100 #### [facility] [address] [place], [address] CO2 [Moles/Vol] 24.0 mmol/L Normal 21.0-32.0 [facility] Comment on above: Performed By: #### L 501.9186, L500.4050, L501.06267, L501.9520, L506.0400, L500.4100 #### [facility] [address] [place], [address] Creatinine [Mass/Vol] 0.79 mg/dL Normal 0.55-1.02 [facility] Comment on above: Result Comment: The validity of the calculated GFR GFRAA in patients over 70 years has not been determined. Clinical correlation is essential. Performed By: #### L 501.9186, L500.4050, L501.05628, L501.9520, L506.0400, L500.4100 #### [facility] [address] [place], [address] EST GFR - AA 100 mL/min Normal >60 [facility] Comment on above: Result Comment: Afri can [place] GFR Calc Performed By: #### L 501.9186, L500.4050, L501.06129, L501.9520, L506.0400, L500.4100 #### [facility] [address] [place], [address] GAP 9 Normal 5-15 [facility] Comment on above: Performed By: #### L 501.9186, L500.4050, L501.74842, L501.9520, L506.0400, L500.4100 #### [facility] [address] [place], [address] GFR/1.73 sq M.predicted among non-blacks MDRD (S/P/Bld) [Vol rate/Area] 82 mL/min/{1.73_m2} Normal >60 [facility] Comment on above: Result Comment: Non- GFR Calc Performed By: #### L 501.9186, L500.4050, L501.44551, L501.9520, L506.0400, L500.4100 #### [facility] [address] [place], [address] Globulin (S) [Mass/Vol] 4.2 g/dL Normal 2.2-4.2 [facility] Comment on above: Performed By: #### L 501.9186, L500.4050, L501.05226, L501.9520, L506.0400, L500.4100 #### [facility] [address] [place], [address] Glucose [Mass/Vol] 89 mg/dL Normal 74-106 [facility] Comment on above: Performed By: #### L 501.9186, L500.4050, L501.20336, L501.9520, L506.0400, L500.4100 #### [facility] [address] [place], [address] Potassium [Moles/Vol] 3.8 mmol/L Normal 3.5-5.1 [facility] Comment on above: Performed By: #### L 501.9186, L500.4050, L501.03276, L501.9520, L506.0400, L500.4100 #### [facility] [address] [place], [address] Sodium [Moles/Vol] 138 mmol/L Normal 136-145 [facility] Comment on above: Performed By: #### L 501.9186, L500.4050, L501.96305, L501.9520, L506.0400, L500.4100 #### [facility] [address] [place], [address] T PROT 8.1 g/dL Normal 6.4-8.2 [facility] Comment on above: Performed By: #### L 501.9186, L500.4050, L501.67120, L501.9520, L506.0400, L500.4100 #### [facility] [address] [place], [address] Urea nitrogen [Mass/Vol] 15 mg/dL Normal 7-18 [facility] Comment on above: Performed By: #### L 501.9186, L500.4050, L501.52673, L501.9520, L506.0400, L500.4100 #### [facility] [address] [place], [address] Free T3on 09-29-2024 Free T3 [Mass/Vol] 3.0 pg/mL Normal 2.18-3.98 [facility] Comment on above: Performed By: #### L 501.9186, L500.4050, L501.31138, L501.9520, L506.0400, L500.4100 #### [facility] [address] [place], [address] Lipid Profileon 09-29-2024 Cholesterol [Mass/Vol] 190 mg/dL Normal 200 [facility] Comment on above: Result Comment: <200 mg/dL Desirable 200-240 mg/dL Borderline >240 mg/dL High Risk Performed By: #### L 501.9186, L500.4050, L501.37315, L501.9520, L506.0400, L500.4100 #### [facility] [address] [place], [address] Cholesterol in HDL [Mass/Vol] 60 mg/dL Normal [facility] Comment on above: Result Comment: The drugs N-Acetylcysteine and Metamizole may falsely depress this assay. Reference Range HDL <40 mg/dL Low HDL Cholesterol HDL >or= 60 mg/dL High HDL Cholesterol Performed By: #### L 501.9186, L500.4050, L501.67028, L501.9520, L506.0400, L500.4100 #### [facility] [address] [place], [address] Cholesterol in LDL [Mass/Vol] 94 mg/dL Normal 0-130 [facility] Comment on above: Performed By: #### L 501.9186, L500.4050, L501.20275, L501.9520, L506.0400, L500.4100 #### [facility] [address] [place], [address] Cholesterol in VLDL [Mass/Vol] 36 mg/dL Normal 5-40 [facility] Comment on above: Performed By: #### L 501.9186, L500.4050, L501.02046, L501.9520, L506.0400, L500.4100 #### [facility] [address] [place], [address] Triglyceride [Mass/Vol] 178 mg/dL Normal [facility] Comment on above: Result Comment: The drugs N-Acetylcysteine and Metamizole may falsely depress this assay. Serum Triglycerides Reference Interval Normal <150 mg/dL Borderline high 150 - 199 mg/dL High 200 - 499 mg/dL Very High > or = 500 mg/dL Performed By: #### L 501.9186, L500.4050, L501.38749, L501.9520, L506.0400, L500.4100 #### [facility] [address] [place], [place], [id number] T3 Total - Triiodothyronineo n 09-29-2024 T3 Total 1.28 ng/mL Normal 0.6-1.81 [facility] Comment on above: Performed By: #### L 501.9186, L500.4050, L501.90021, L501.9520, L506.0400, L500.4100 #### [facility] [address] [place], [address] T4 Free Directon 09-29-2024 T4 FREE DIRECT 1.24 ng/dL Normal 0.76-1.46 [facility] Comment on above: Performed By: #### L 501.9186, L500.4050, L501.25671, L501.9520, L506.0400, L500.4100 #### [facility] [address] [place], [address] Thyroid Stim Hormone (TSH)on 09-29-2024 TSH 3.510 uIU/mL Normal 0.358-3.740 [facility] Comment on above: Performed By: #### L 501.9186, L500.4050, L501.08007, L501.9520, L506.0400, L500.4100 #### [facility] [address] [place], [address] Comprehensive Metabolic Prof flon 03-31-2024 Albumin [Mass/Vol] 3.9 g/dL Normal 3.2-5.0 [facility] Comment on above: Performed By: #### L 500.4050, L501.04660, L500.4100, L506.0400, L501.9520 #### [facility] [address] [place], [address] Albumin/Globulin [Mass ratio] 1.1 {ratio} Normal 0.9-2.4 [facility] Comment on above: Performed By: #### L 500.4050, L501.56296, L500.4100, L506.0400, L501.9520 #### [facility] [address] [place], [address] ALK P 98 U/L Normal 45-117 [facility] Comment on above: Performed By: #### L 500.4050, L501.00233, L500.4100, L506.0400, L501.9520 #### [facility] [address] [place], [address] ALT [Catalytic activity/Vol] 21 U/L Normal 13-56 [facility] Comment on above: Performed By: #### L 500.4050, L501.17693, L500.4100, L506.0400, L501.9520 #### [facility] [address] [place], [address] AST [Catalytic activity/Vol] 15 U/L Normal 15-37 [facility] Comment on above: Performed By: #### L 500.4050, L501.19879, L500.4100, L506.0400, L501.9520 #### [facility] [address] [place], [address] Bilirubin [Mass/Vol] 0.20 mg/dL Normal 0.20-1.[address] [facility] Comment on above: Result Comment: For patients on eltrombopag therapy, use of Dimension [place] TBIL is not recommended. Performed By: #### L 500.4050, L501.29153, L500.4100, L506.0400, L501.9520 #### [facility] [address] [place], [address] BUN/CRE 15.0 RATIO Normal 10-20 [facility] Comment on above: Performed By: #### L 500.4050, L501.12371, L500.4100, L506.0400, L501.9520 #### [facility] [address] [place], [address] CA,Total 9.3 mg/dL Normal 8.5-10.1 [facility] Comment on above: Performed By: #### L 500.4050, L501.36186, L500.4100, L506.0400, L501.9520 #### [facility] [address] [place], [address] Chloride [Moles/Vol] 107 mmol/L Normal 98-[address] [facility] Comment on above: Performed By: #### L 500.4050, L501.65894, L500.4100, L506.0400, L501.9520 #### [facility] [address] [place], [address] CO2 [Moles/Vol] 27.0 mmol/L Normal 21.0-32.0 [facility] Comment on above: Performed By: #### L 500.4050, L501.01541, L500.4100, L506.0400, L501.9520 #### [facility] [address] [place], [address] Creatinine [Mass/Vol] 0.80 mg/dL Normal 0.55-1.02 [facility] Comment on above: Result Comment: The validity of the calculated GFR GFRAA in patients over 70 years has not been determined. Clinical correlation is essential. Performed By: #### L 500.4050, L501.66277, L500.4100, L506.0400, L501.9520 #### [facility] [address] [place], [place], [id number] (849) EST GFR - AA 98 mL/min Normal >60 [facility] Comment on above: Result Comment: Afri can [place] GFR Calc Performed By: #### L 500.4050, L501.20767, L500.4100, L506.0400, L501.9520 #### [facility] [address] [place], [place], [id number] [phone] Normal 5-15 [facility] Comment on above: Performed By: #### L 500.4050, L501.61498, L500.4100, L506.0400, L501.9520 #### [facility] [address] [place], [place], [id number] GFR/1.73 sq M.predicted among non-blacks MDRD (S/P/Bld) [Vol rate/Area] 81 mL/min/{1.73_m2} Normal >60 [facility] Comment on above: Result Comment: Non- GFR Calc Performed By: #### L 500.4050, L501.87160, L500.4100, L506.0400, L501.9520 #### [facility] [address] [place], [address] Globulin (S) [Mass/Vol] 3.7 g/dL Normal 2.2-4.2 [facility] Comment on above: Performed By: #### L 500.4050, L501.32356, L500.4100, L506.0400, L501.9520 #### [facility] [address] [place], [address] Glucose [Mass/Vol] 95 mg/dL Normal 74-106 [facility] Comment on above: Performed By: #### L 500.4050, L501.12564, L500.4100, L506.0400, L501.9520 #### [facility] [address] [place], [address] Potassium [Moles/Vol] 4.0 mmol/L Normal 3.5-5.1 [facility] Comment on above: Performed By: #### L 500.4050, L501.25473, L500.4100, L506.0400, L501.9520 #### [facility] [address] [place], [address] Sodium [Moles/Vol] 140 mmol/L Normal 136-145 [facility] Comment on above: Performed By: #### L 500.4050, L501.90248, L500.4100, L506.0400, L501.9520 #### [facility] [address] [place], [address] T PROT 7.6 g/dL Normal 6.4-8.2 [facility] Comment on above: Performed By: #### L 500.4050, L501.36206, L500.4100, L506.0400, L501.9520 #### [facility] [address] [place], [address] Urea nitrogen [Mass/Vol] 12 mg/dL Normal 7-18 [facility] Comment on above: Performed By: #### L 500.4050, L501.52928, L500.4100, L506.0400, L501.9520 #### [facility] [address] [place], [address] Free T3on 08-14-2024 Free T3 [Mass/Vol] 3.1 pg/mL Normal 2.18-3.98 [facility] Comment on above: Performed By: #### L 500.4050, L501.76988, L500.4100, L506.0400, L501.9520 #### [facility] [address] [place], [address] Lipid Profileon 03-31-2024 Cholesterol [Mass/Vol] 171 mg/dL Normal 200 [facility] Comment on above: Result Comment: <200 mg/dL Desirable 200-240 mg/dL Borderline >240 mg/dL High Risk Performed By: #### L 500.4050, L501.12626, L500.4100, L506.0400, L501.9520 #### [facility] [address] [place], [address] Cholesterol in HDL [Mass/Vol] 58 mg/dL Normal [facility] Comment on above: Result Comment: The drugs N-Acetylcysteine and Metamizole may falsely depress this assay. Reference Range HDL <40 mg/dL Low HDL Cholesterol HDL >or= 60 mg/dL High HDL Cholesterol Performed By: #### L 500.4050, L501.58918, L500.4100, L506.0400, L501.9520 #### [facility] [address] [place], [address] Cholesterol in LDL [Mass/Vol] 86 mg/dL Normal 0-130 [facility] Comment on above: Performed By: #### L 500.4050, L501.73202, L500.4100, L506.0400, L501.9520 #### [facility] [address] [place], [address] Cholesterol in VLDL [Mass/Vol] 27 mg/dL Normal 5-40 [facility] Comment on above: Performed By: #### L 500.4050, L501.74363, L500.4100, L506.0400, L501.9520 #### [facility] [address] [place], [place], [id number] Triglyceride [Mass/Vol] 135 mg/dL Normal [facility] Comment on above: Result Comment: The drugs N-Acetylcysteine and Metamizole may falsely depress this assay. Serum Triglycerides Reference Interval Normal <150 mg/dL Borderline high 150 - 199 mg/dL High 200 - 499 mg/dL Very High > or = 500 mg/dL Performed By: #### L 500.4050, L501.61324, L500.4100, L506.0400, L501.9520 #### [facility] [address] [place], [address] T4 Free Directon 03-31-2024 T4 FREE DIRECT 1.30 ng/dL Normal 0.76-1.46 [facility] Comment on above: Performed By: #### L 501.9186, L500.4050, L501.18137, L501.9520, L506.0400, L500.4100 #### [facility] [address] [place], [place], [id number] Thyroid Stim Hormone (TSH)on 03-31-2024 TSH 0.559 uIU/mL Normal 0.358-3.740 [facility] Comment on above: Performed By: #### L 500.4050, L501.55769, L500.4100, L506.0400, [id number] #### [facility] [address] [place], [place], [id number] .Auto Diffon 02-29-2024 Basophil, Absolute 0.1 10 3/mcL Normal 0.0-0.3 [facility] ([place]) Comment on above: Performed By: #### C BC, CMP, LAC, LIP, ADIFF, ANEU, GFR, MDW #### [place] [address] [place], [place] [address] Basophils/100 WBC (Bld) 0.4 % Normal 0.0-2.5 [facility] ([place]) Comment on above: Performed By: #### C BC, CMP, LAC, LIP, ADIFF, ANEU, GFR, MDW #### [facility] [address] [place], [place] [address] Eosinophil, Absolute 0.2 10 3/mcL Normal 0.0-0.7 [facility] ([place]) Comment on above: Performed By: #### C BC, CMP, LAC, LIP, ADIFF, ANEU, GFR, MDW #### [place]ine [place] [address] [place], [place] [address] Eosinophils/100 WBC (Bld) 1.3 % Normal 0.0-6.0 [facility] ([place]) Comment on above: Performed By: #### C BC, CMP, LAC, LIP, ADIFF, ANEU, GFR, MDW #### [facility] [address] [place], [place] [address] Lymphocyte, Absolute 3.1 10 3/mcL Normal 0.9-4.3 [facility] ([place]) Comment on above: Performed By: #### C BC, CMP, LAC, LIP, ADIFF, ANEU, GFR, MDW #### [facility] [address] [place], [place] [address] Lymphocytes/100 WBC (Bld) 20.7 % Normal 20.0-40.0 [facility] ([place]) Comment on above: Performed By: #### C BC, CMP, LAC, LIP, ADIFF, ANEU, GFR, MDW #### [place] [address] [place], [place] [address] Monocyte, Absolute 1.1 10 3/mcL Normal 0.1-1.4 [facility] ([place]) Comment on above: Performed By: #### C BC, CMP, LAC, LIP, ADIFF, ANEU, GFR, W #### [facility] [address] [place], [place] [address] Monocytes/100 WBC (Bld) 7.5 % Normal 2.0-13.0 [facility] ([place]) Comment on above: Performed By: #### C BC, CMP, LAC, LIP, ADIFF, ANEU, GFR, MDW #### [place] [address] [place], [place] [address] Neutrophils/100 WBC (Bld) 70.1 % Normal 50.0-75.0 [facility] ([place]) Comment on above: Performed By: #### C BC, CMP, LAC, LIP, ADIFF, ANEU, GFR, W #### [place] [address] [place], [place] [address] .GFRon 02-29-2024 GFR 77 ml/min/1.73sqm Normal [facility] ([place]) Comment on above: Result Comment: GFR Population mean for , Non- Americans Ages 20-29 = 116 mL/min/1.73 sq.m. Ages 30-39 = 107 mL/min/1.73 sq.m. Ages 40-49 = 99 mL/min/1.73 sq.m. Ages 50-59 = 93 mL/min/1.73 sq.m. Ages 60-69 = 85 mL/min/1.73 sq.m. Ages 70+ = 75 mL/min/1.73 sq.m. Chronic Kidney Disease: Less than 60 mL/min/1.73 square meters End Stage Renal Disease: Less than 15 mL/min/1.73 square meters Performed By: #### C BC, CMP, LAC, LIP, ADIFF, ANEU, GFR, MDW #### [facility] [address] [place], [place] [address] GFR Non- 64 ml/min/1.73sqm Normal [facility] ([place]) Comment on above: Result Comment: GFR Population mean for , Non- Americans Ages 20-29 = 116 mL/min/1.73 sq.m. Ages 30-39 = 107 mL/min/1.73 sq.m. Ages 40-49 = 99 mL/min/1.73 sq.m. Ages 50-59 = 93 mL/min/1.73 sq.m. Ages 60-69 = 85 mL/min/1.73 sq.m. Ages 70+ = 75 mL/min/1.73 sq.m. Chronic Kidney Disease: Less than 60 mL/min/1.73 square meters End Stage Renal Disease: Less than 15 mL/min/1.73 square meters Performed By: #### C BC, CMP, LAC, LIP, ADIFF, ANEU, GFR, MDW #### [place] [address] [place], [place] [address] .MDWon 02-29-2024 Monocyte Distribution Width 18.46 Normal 0.00-20.00 [facility] ([place]) Comment on above: Result Comment: For ED adult patients suspected of sepsis, MDW<=20.0 does not rule out sepsis or risk of sepsis Performed By: #### C BC, CMP, LAC, LIP, ADIFF, ANEU, GFR, MDW #### [facility] [address] [place], [place] [address] .NEUABSon 02-29-2024 Neutrophil, Absolute 10.5 10 3/mcL High 2.3-8.1 [facility] ([place]) Comment on above: Performed By: #### C BC, CMP, LAC, LIP, ADIFF, ANEU, GFR, MDW #### [facility] [address] [place] [id number] CBCon 02-29-2024 Erythrocyte distribution width (RBC) [Ratio] 16.6 % High 11.5-15.5 [facility] ([place]) Comment on above: Performed By: #### C BC, CMP, LAC, LIP, ADIFF, ANEU, GFR, MDW #### [facility] [address] [place], [place] [address] Hematocrit (Bld) [Volume fraction] 43.0 % Normal 34.0-46.0 [facility] ([place]) Comment on above: Performed By: #### C BC, CMP, LAC, LIP, ADIFF, ANEU, GFR, W #### [facility] [address] [place], [place] [address] Hgb 14.1 G/dL Normal 12.0-16.0 [facility] ([place]) Comment on above: Performed By: #### C BC, CMP, LAC, LIP, ADIFF, ANEU, GFR, MDW #### [facility] [address] [place], [place] [address] MCH (RBC) [Entitic mass] 27.1 pg Normal 27.0-33.0 [facility] ([place]) Comment on above: Performed By: #### C BC, CMP, LAC, LIP, ADIFF, ANEU, GFR, MDW #### [place] [address] [place], [place] [address] MCHC 32.8 G/dL Normal 32.0-36.0 [facility] ([place]) Comment on above: Performed By: #### C BC, CMP, LAC, LIP, ADIFF, ANEU, GFR, MDW #### [facility] [address] [place], [place] [address] MCV (RBC) [Entitic vol] 82.6 fL Normal 80.0-99.0 [facility] ([place]) Comment on above: Performed By: #### C BC, CMP, LAC, LIP, ADIFF, ANEU, GFR, MDW #### [facility] [address] [place], [place] [address] Platelet 365 10 3/mcL Normal 150-450 [facility] ([place]) Comment on above: Performed By: #### C BC, CMP, LAC, LIP, ADIFF, ANEU, GFR, MDW #### [facility] [address] [place], [place] [address] Platelet mean volume (Bld) [Entitic vol] 7.7 fL Normal 6.6-10.5 [facility] ([place]) Comment on above: Performed By: #### C BC, CMP, LAC, LIP, ADIFF, ANEU, GFR, MDW #### [place] [address] [place], [place] [address] RBC 5.20 10 6/mcL Normal 4.10-5.30 [facility] ([place]) Comment on above: Performed By: #### C BC, CMP, LAC, LIP, ADIFF, ANEU, GFR, MDW #### [place] [address] [place], [place] [address] WBC 15.0 10 3/mcL High 4.5-10.8 [facility] ([place]) Comment on above: Performed By: #### C BC, CMP, LAC, LIP, ADIFF, ANEU, GFR, MDW #### [facility] [address] [place], [place] [address] CMPon 02-29-2024 Albumin Level 3.9 G/dL Normal 3.5-5.0 [facility] ([place]) Comment on above: Performed By: #### C BC, CMP, LAC, LIP, ADIFF, ANEU, GFR, MDW #### [facility] [address] [place], [place] [address] Albumin/Globulin [Mass ratio] 1.0 {ratio} Low 1.1-2.5 [facility] ([place]) Comment on above: Performed By: #### C BC, CMP, LAC, LIP, ADIFF, ANEU, GFR, MDW #### [facility] [address] [place], [place] [address] ALP [Catalytic activity/Vol] 106 U/L Normal 40-135 [facility] ([place]) Comment on above: Performed By: #### C BC, CMP, LAC, LIP, ADIFF, ANEU, GFR, MDW #### [facility] [address] [place], [place] [address] ALT [Catalytic activity/Vol] 28 U/L Normal 14-59 [facility] ([place]) Comment on above: Performed By: #### C BC, CMP, LAC, LIP, ADIFF, ANEU, GFR, MDW #### [facility] [address] [place], [place] [address] AST [Catalytic activity/Vol] 29 U/L Normal 10-40 [facility] ([place]) Comment on above: Performed By: #### C BC, CMP, LAC, LIP, ADIFF, ANEU, GFR, MDW #### [facility] [address] [place], [place] [address] Bili Total 0.5 mg/dL Normal 0.2-1.0 [facility] ([place]) Comment on above: Result Comment: Use of this assay is not recommended for patients undergoing treatment with eltrombopag due to the potential for falsely elevated results. Performed By: #### C BC, CMP, LAC, LIP, ADIFF, ANEU, GFR, MDW #### [facility] [address] [place], [place] [address] BUN/Creatinine Ratio 19 ratio Normal 7-27 [facility] ([place]) Comment on above: Performed By: #### C BC, CMP, LAC, LIP, ADIFF, ANEU, GFR, MDW #### [facility] [address] [place], [place] [address] Calcium [Mass/Vol] 10.0 mg/dL Normal 8.4-10.2 [facility] ([place]) Comment on above: Performed By: #### C BC, CMP, LAC, LIP, ADIFF, ANEU, GFR, MDW #### [facility] [address] [place], [place] [address] Chloride [Moles/Vol] 102 mmol/L Normal 98-107 [facility] ([place]) Comment on above: Performed By: #### C BC, CMP, LAC, LIP, ADIFF, ANEU, GFR, MDW #### [facility] [address] [place], [place] [address] CO2 [Moles/Vol] 25 mmol/L Normal 22-29 [facility] ([place] Comment on above: Performed By: #### C BC, CMP, LAC, LIP, ADIFF, ANEU, GFR, MDW #### [facility] [address] [place], [place] [address] Creatinine [Mass/Vol] 0.94 mg/dL Normal 0.55-1.02 [facility] ([place]) Comment on above: Performed By: #### C BC, CMP, LAC, LIP, ADIFF, ANEU, GFR, MDW #### [facility] [address] [place], [place] [address] Electrolyte Balance 13.0 mEq/L Normal 4.0-15.0 [facility] ([place]) Comment on above: Performed By: #### C BC, CMP, LAC, LIP, ADIFF, ANEU, GFR, MDW #### [facility] [address] [place], [place] [address] Globulin 3.9 G/dL Normal [facility] ([place]) Comment on above: Performed By: #### C BC, CMP, LAC, LIP, ADIFF, ANEU, GFR, MDW #### [facility] [address] [place], [place] [address] Glucose [Mass/Vol] 133 mg/dL High 70-105 [facility] ([place]) Comment on above: Performed By: #### C BC, CMP, LAC, LIP, ADIFF, ANEU, GFR, MDW #### [facility] [address] [place], [place] [address] Potassium [Moles/Vol] 4.1 mmol/L Normal 3.5-5.1 [facility] ([place]) Comment on above: Performed By: #### C BC, CMP, LAC, LIP, ADIFF, ANEU, GFR, MDW #### [facility] [address] [place], [place] [address] Sodium [Moles/Vol] 140 mmol/L Normal 136-145 [facility] ([place]) Comment on above: Performed By: #### C BC, CMP, LAC, LIP, ADIFF, ANEU, GFR, MDW #### [facility] [address] [place], [place] [address] Total Protein 7.8 G/dL Normal 6.4-8.2 [facility] ([place]) Comment on above: Performed By: #### C BC, CMP, LAC, LIP, ADIFF, ANEU, GFR, W #### [facility] [address] [place], [place] [address] Urea nitrogen [Mass/Vol] 18 mg/dL Normal 7-18 [facility] ([place] Comment on above: Performed By: #### C BC, CMP, LAC, LIP, ADIFF, ANEU, GFR, W #### [facility] [address] [place], [place] [address] LACon 02-29-2024 Lactic Acid Lvl 2.0 mmol/L Normal 0.4-2.0 [facility] ([place]) Comment on above: Performed By: #### C BC, CMP, LAC, LIP, ADIFF, ANEU, GFR, W #### [place] [address] [place], [place] [address] LIPon 02-29-2024 Lipase Level 20 U/L Normal 16-77 [facility] ([place]) Comment on above: Performed By: #### C BC, CMP, LAC, LIP, ADIFF, NAOMY, GFR, W #### [place] [address] [place], [place] [address] Basophil percentageOrdered B y: Cedric Ansari on 10-02-2023 Cholesterol [Mass/Vol] 172 mg/dL <200 [facility] Comment on above: <200 mg/dL Desirable 200-240 mg/dL Borderline >240 mg/dL High Risk Triglyceride [Mass/Vol] 127 mg/dL <199 [facility] Comment on above: The drugs N-Acetylcy steine and Metamizole may falsely depress this assay.Serum Triglycerides Reference Interval Normal <150 mg/dL Borderline high 150 - 199 mg/dL High 200 - 499 mg/dL Very High > or = 500 mg/dL Laboratory - Chemistry and C hemistry - challengeOrdered By: Cedric Ansari on 10-02-2023 Cholesterol in HDL [Mass/Vol] 58 mg/dL >40 [facility] Comment on above: The drugs N-Acetylcy steine and Metamizole may falsely depress this assay. Reference Range HDL <40 mg/dL Low HDL Cholesterol HDL >or= 60 mg/dL High HDL Cholesterol Cholesterol in LDL [Mass/Vol] 89 mg/dL 0-130 [facility] No Panel InformationOrdered By: Cedric Ansari on 10-02-2023 Free Triiodothyronine (T3) pg/dL 2.6 pg/mL 2.18-3.98 [facility] VLDL Cholesterol 25 mg/dL 5-40 [facility] Serum or plasma thyroid stim ulating hormone (TSH) measurement (units/volume)Ordered By: Cedric Ansari on 10-02-2023 TSH Qn 3.10 uIU/mL 0.358-3.74 [facility] Thin prep Papanicolaou smear with manual screeningOrdered By: Cedric Ansari on 10-02-2023 Thin prep Papanicolaou smear with manual screening 1.13 ng/dL 0.76-1.46 [facility] Basophil percentageOrdered B y: Cedric Ansari on 07-04-2023 Bilirubin [Mass/Vol] 0.20 mg/dL 0.20-1.[address] [facility] Comment on above: For patients on eltr ombopag therapy, use of Dimension [place] TBIL is not recommended. Chloride [Moles/Vol] 104 mmol/L 98-[address] [facility] Cholesterol [Mass/Vol] 239 mg/dL <200 [facility] Comment on above: <200 mg/dL Desirable 200-240 mg/dL Borderline >240 mg/dL High Risk Glucose [Mass/Vol] 82 mg/dL 74-106 [facility] Potassium [Moles/Vol] 4.0 mmol/L 3.5-5.1 [facility] [place] [facility] Protein [Mass/Vol] 8.0 g/dL 6.4-8.2 [facility] Sodium [Moles/Vol] 138 mmol/L 136-145 [facility] Triglyceride [Mass/Vol] 204 mg/dL <199 [facility] Comment on above: The drugs N-Acetylcy steine and Metamizole may falsely depress this assay.Serum Triglycerides Reference Interval Normal <150 mg/dL Borderline high 150 - 199 mg/dL High 200 - 499 mg/dL Very High > or = 500 mg/dL Laboratory - Chemistry and C hemistry - challengeOrdered By: Cedric Ansari on 07-04-2023 ALP [Catalytic activity/Vol] 98 U/L 45-117 [facility] ALT [Catalytic activity/Vol] 27 U/L 13-56 [facility] CO2 [Moles/Vol] 27.0 mmol/L 21.0-32.0 [facility] Free T4 [Mass/Vol] 1.09 ng/dL 0.76-1.46 [facility] Globulin (S) [Mass/Vol] 4.4 g/dL 2.2-4.2 [facility] Urea nitrogen/Creatinine [Mass ratio] 18.2 mg/mg 10-20 [facility] No Panel InformationOrdered By: Cedric Ansari on 07-04-2023 Estimated GFR (MDRD) Amer 103 mL/min >60 [facility] Comment on above: GFR Calc Estimated GFR (MDRD) Non-Af Amer 85 mL/min >60 [facility] Comment on above: Non- GFR Calc Free Triiodothyronine (T3) pg/dL 2.9 pg/mL 2.18-3.98 [facility] Thyroid Stimulating Hormone (TSH) 3.89 uIU/mL 0.358-3.74 [facility] Serum or plasma albumin drew urement (mass/volume)Ordered By: Cedric Ansari on 07-04-2023 Albumin [Mass/Vol] 3.6 g/dL 3.2-5.0 [facility] Serum or plasma albumin/glob ulin mass ratioOrdered By: Cedric Ansari on 07-04-2023 Albumin/Globulin [Mass ratio] 0.8 {ratio} 0.9-2.4 [facility] Serum or plasma calcium drew urement (mass/volume)Ordered By: Cedric Ansari on 07-04-2023 Calcium [Mass/Vol] 9.1 mg/dL 8.5-10.1 [facility] Serum or plasma cholesterol in HDL measurement (mass/volume)Ordered By: Cedric Ansari on 07-04-2023 Cholesterol in HDL [Mass/Vol] 52 mg/dL >40 [facility] Comment on above: The drugs N-Acetylcy steine and Metamizole may falsely depress this assay. Reference Range HDL <40 mg/dL Low HDL Cholesterol HDL >or= 60 mg/dL High HDL Cholesterol Serum or plasma cholesterol in VLDL measurement (mass/volume)Ordered By: Cedric Ansari on 07-04-2023 Cholesterol in VLDL [Mass/Vol] 41 mg/dL 5-40 [facility] Serum or plasma creatinine m easurement (mass/volume)Ordered By: Cedric Ansari on 07-04-2023 Creatinine [Mass/Vol] 0.77 mg/dL 0.55-1.02 [facility] [place] [facility] Comment on above: The validity of the calculated GFR & GFRAA in patients over 70 years has not been determined. Clinical correlation is essential. Serum or plasma low density lipoprotein (LDL) cholesterol measurement (mass/volume)Ordered By: Cedric Ansari on 07-04-2023 Cholesterol in LDL [Mass/Vol] 146 mg/dL 0-130 [facility] Serum or plasma urea nitroge n measurement (mass/volume)Ordered By: Cedric Ansari on 07-04-2023 Urea nitrogen [Mass/Vol] 14 mg/dL 7-18 [facility] Thin prep Papanicolaou smear with manual screeningOrdered By: Cedric Ansari on 07-04-2023 Thin prep Papanicolaou smear with manual screening 15 U/L 15-37 [facility] Thin prep Papanicolaou smear with manual screening 7 5-15 [facility] - Chemistry and C hemistry - challengeOrdered By: Dr. Ansari on 09-02-2022 Free T4 [Mass/Vol] 1.25 ng/dL 0.76-1.46 [facility] No Panel InformationOrdered By: Dr. Ansari on 09-02-2022 Free Triiodothyronine (T3) pg/dL 3.2 pg/mL 2.18-3.98 [facility] Thyroid Stimulating Hormone (TSH) 0.10 uIU/mL 0.358-3.74 [facility] CNOVon 07-19-2022 CNOV Office Visit (UCMMAS ) CORREIAGALI Escoto ([id number]) 1975 F Date Time Provider Department 07/19/22 3:30 PM JAH GOLDSTEIN) MMAS During your visit today, we recorded the following information about you: Temperature Pulse Respiration Blood pressure 99.2 degrees 98/minute 18/minute 143/76 Weight 98.4 kg Jah Goldstein PA-C, MACKENZIE 07/19/2022 4:24 PM Signed Gali BHATTION is an 46 year old female presenting [...] Mood and affect are appropriate to situation. Gali was seen today for cough. Diagnoses and all orders for this visit: Viral upper respiratory tract infection Other orders - benzonatate (TESSALON PERLES) 100 mg capsule; Take 2 capsules by mouth three times daily as needed for cough. - methylPREDNISolone (MEDROL, LOREN,) 4 mg Dose-Pack; Take by mouth per package instructions Jah Goldstein PA-C, MACKENZIE Return for FU with PCP in 5 days. ER warnings signs given!. Referring Provider: SELF [200] Allergies As of Date: 07/19/2022 Noted Allergy Reaction AUGMENTIN (AMOXICILLIN-POT CLAVUL*07/19/2022 8 - GI Upset Date Reviewed: 07/19/2022 Reviewed by: Jah Fitch (Mackenzie) MACKENZIE Goldstein - Fully Assessed Reason for Visit: Cough [28] Cmt: Over 1 week Primary Visit Diagnosis:Viral upper respiratory tract infection [J06.9] Order(s):benzonatate (TESSALON PERLES) 100 mg capsuleTake 2 capsules by mouth three times daily as needed for cough.Disp: 15 capsuleRfl: 0 methylPREDNISolone (MEDROL, LOREN,) 4 mg Dose-PackTake by mouth per package instructionsDisp: 21 tabletRfl: 0 Prescriptions as of 07/19/2022 - dicyclomine (BENTYL) 20 mg tablet TAKE 1 TABLET BY MOUTH THREE TIMES DAILY FOR 3 DAYS, THEN 1 TABLET THR (more content not included)... Normal [facility] - Chemistry and C hemistry - challengeon 03-04-2022 Free T4 [Mass/Vol] 1.36 ng/dL 0.76-1.46 [facility] Work Phone: No Panel Informationon 03-04 Free Triiodothyronine (T3) pg/dL 2.9 pg/mL 2.18-3.98 [facility] Work Phone: Thyroid Stimulating Hormone (TSH) 0.07 uIU/mL 0.358-3.74 [facility] Work Phone: Laboratory - Chemistry and C hemistry - challengeon 11-01-2021 Free T4 [Mass/Vol] 1.54 ng/dL 0.76-1.46 [facility] Work Phone: No Panel Informationon 11-01 Free Triiodothyronine (T3) pg/dL 2.6 pg/mL 2.18-3.98 [facility] Work Phone: Thyroid Stimulating Hormone (TSH) 0.26 uIU/mL 0.358-3.74 [facility] Work Phone: Vital Signs Date Time Vital Sign Value Performing Clinician Facility 11-13-2022 10:57-0400 Body temperature 97.9 [degF] Dr. Cedric Ansari Work Phone: [facility] 11-13-2022 10:57-0400 Diastolic blood pressure 69 mm[Hg] Dr. Cedric Ansari Work Phone: [facility] 11-13-2022 10:57-0400 Heart rate 80 /min Dr. Cedric Ansari Work Phone: [facility] 11-13-2022 10:57-0400 Respiratory rate 16 /min Dr. Cedric Ansari Work Phone: [facility] 11-13-2022 10:57-0400 SaO2% (BldA) [Mass fraction] 97 % Dr. Cedric Ansari Work Phone: [facility] 11-13-2022 10:57-0400 Systolic blood pressure 108 mm[Hg] Dr. Cedric Ansari Work Phone: [facility] 11-13-2022 09:00-0400 Inhaled oxygen flow rate 1 L/min Dr. Cedric Ansari Work Phone: [facility] 11-13-2022 06:23-0400 Body height 162.[address] Cedric Ansari Work Phone: [facility] 11-13-2022 06:23-0400 Body mass index (BMI) [Ratio] 39.3 kg/m2 Dr. Cedric Ansari Work Phone: [facility] 11-13-2022 06:23-0400 Body weight [address] Cedric Ansari Work Phone: [facility] 09-27-2022 10:19-0500 Body mass index (BMI) [Ratio] 37.8 kg/m2 Dr. Cedric Ansari Work Phone: [facility] 09-27-2022 10:19-0500 Body weight 99.[address] Cedric Ansari Work Phone: [facility] 07-19-2022 15:48-0500 Body temperature 99.19 [degF] Jah Goldstein PA-C Work Phone: [facility] 07-19-2022 15:48-0500 Body weight 98.43 kg Jahcristobal Kaurton PA-C Work Phone: [facility] 07-19-2022 15:48-0500 Diastolic blood pressure 76 mm[Hg] Jah Kaurton PA-C Work Phone: [facility] 07-19-2022 15:48-0500 Heart rate 98 /min Jah Kaurton PA-C Work Phone: [facility] 07-19-2022 15:48-0500 Respiratory rate 18 /min Jah Kaurton PA-C Work Phone: [facility] 07-19-2022 15:48-0500 SaO2% (BldA) [Mass fraction] 98 % Jah Kaurton PA-C Work Phone: [facility] 07-19-2022 15:48-0500 Systolic blood pressure 143 mm[Hg] Jah Kaurton PA-C Work Phone: [facility] Encounters Encounter Date Encounter Type Care Provider Facility Start: 09-29-2024 End: 09-29-2024 ambulatory Cedric Ansari Facility:[facility] Start: 08-28-2024 End: 08-28-2024 [facility] Start: 03-31-2024 End: 03-31-2024 ambulatory Cedric Ansari Facility:[facility] Start: 02-29-2024 End: 02-29-2024 Emergency department patient visit DR CEDRIC ANSARI MD Facility:A Start: 10-02-2023 End: 10-02-2023 ambulatory [facility] Work Phone: Start: 10-02-2023 End: 10-02-2023 Patient encounter procedure [facility] Start: 07-04-2023 End: 07-04-2023 Patient encounter procedure [facility] Start: 11-25-[facility]22 [facility] Start: 11-13-2022 Non-patient / Non-visit Dr. Ham Ansari Work Phone: [facility] Start: 11-13-2022 End: 11-13-2022 Admission to same day surgery center [facility] Start: 11-13-2022 End: 11-13-[address] Cedric Ansari Work Phone: [facility] Work Phone: Start: 09-27-2022 End: 09-27-[address] Cedric Ansari Work Phone: [facility] Start: 09-18-2022 End: 09-18-[address] Cedric Ansari Work Phone: [facility] Start: 09-02-2022 End: 09-02-[address] Cedric Ansari Work Phone: [facility] Start: 08-27-2022 [facility] Start: 07-19-2022 End: 12-02-2022 ambulatory CEDRIC ANSARI Facility:[id number] Start: 07-19-2022 End: 07-19-2022 Office outpatient visit 15 minutes Jah Newell) Sweta MANN Work Phone: [facility] Comment on above: Viral upper respirat ory tract infection (Primary Dx) Start: 03-04-2022 End: 03-04-2022 Patient encounter procedure [facility] Start: 12-03-2021 Letter encounter [facility] Start: 11-01-2021 End: 11-01-2021 Patient encounter procedure [facility] Start: 11-13-2018 Encounter for genera l adult medical examination without abnormal findings [facility] Start: 11-13-2018 End: 11-13-2018 Patient encounter procedure [facility] Encounter for genera l adult medical examination without abnormal findings [facility] [facility] Procedures Date Procedure Procedure Detail Performing Clinician Start: 11-13-[address] Cedric Ansari Work Phone: Start: 09-18-2022 MRI of joint of lowe r extremity Dr. Cedric Ansari Work Phone: Start: 03-04-2022 Radiologic examinati on of knee Plan of Treatment Date Care Activity Detail Author Start: 11-22-2025 Shingles (RZV) Vaccine (1 of 2) Shingles (RZV) Vaccine (1 of 2) [facility] Start: 05-14-2024 LIPID SCREEN LIPID SCREEN [facility] Start: 04-18-2024 COVID-19 Vaccine ( season) COVID-19 Vaccine ( season) [facility] Start: 11-13-2022 Application of device [facility] Start: 11-13-2022 Assessment of risk of venous thromboembolism [facility] Start: 11-13-2022 Catheterization of vein [facility] Start: 11-13-2022 Deep breathing and coughing exercises [facility] Start: 11-13-2022 Following clinical pathway protocol [facility] Start: 11-13-2022 Gait training procedure [facility] Start: 11-13-2022 Incentive spirometry [facility] Start: 11-13-2022 Introduction of urinary catheter [facility] Start: 11-13-2022 Patient education [facility] Start: 11-13-2022 Provision of activity privileges [facility] Start: 11-13-2022 Taking patient vital signs [facility] Start: 11-13-2022 Vital signs measurements [facility] Start: 11-13-2022 [facility] Start: 11-13-2022 End: 11-13-2022 Patient discharge [facility] Start: 11-13-2022 Medication education [facility] Start: 05-18-2022 Influenza vaccination [facility] Start: 05-14-2022 DIABETES SCREEN DIABETES SCREEN [facility] Start: 10-18-2021 COVID-19 Vaccine (4 - Booster for Pfizer series) COVID-19 Vaccine (4 - Booster for Pfizer series) [facility] Start: 08-18-2021 DEPRESSION ASSESSMENT DEPRESSION ASSESSMENT [facility] Start: 11-22-2020 Cholesterol [Mass/volume] in Serum or [facility] Start: 11-22-2020 COLOGUARD (FIT-DNA) COLOGUARD (FIT-DNA) [facility] Start: 11-22-2020 Colonoscopy COLONOSCOPY [facility] Start: 11-22-2020 COLORECTAL CANCER SCREENING COLORECTAL CANCER SCREENING [facility] Start: 11-22-[address] COLONOGRAPHY [facility] Start: 11-22-2020 FECAL OCCULT BLOOD FECAL OCCULT BLOOD [facility] Start: 11-22-2020 Lipid panel [facility] Start: 11-22-2020 Screening for malignant neoplasm of colon [facility] Start: 11-22-2020 SIGMOIDOSCOPY SIGMOIDOSCOPY [facility] Start: 05-18-2019 Annual wellness visit Annual Wellness Visit (G0438) [facility] Start: 2015 Mammography MAMMOGRAM [facility] Start: 2015 Screening for malignant neoplasm of breast Mammography [facility] Start: 11-22-2005 HPV TESTING HPV TESTING [facility] Start: 11-22-1996 PAP TESTING PAP TESTING [facility] Start: 11-22-1996 Screening for malignant neoplasm of cervix Pap Smear [facility] Start: 11-22-1994 Hepatitis A (HAV) Vaccine (optional start 19+ years) Hepatitis A (HAV) Vaccine (optional start 19+ years) [facility] Start: 11-22-1994 Hepatitis B vaccination Hepatitis B (HBV) Vaccine (1 of 3 - 19+ 3-dose series) [facility] Start: 11-22-1994 Urine microalbumin profile DTAP,TDAP,TD (1 - Tdap) [facility] Start: 11-22-1993 Hepatitis C screening Hepatitis C Antibody [facility] Start: 11-22-1993 HEPATITIS C SCREENING HEPATITIS C SCREENING [facility] Start: 11-22-1993 HIV SCREENING HIV SCREENING [facility] Start: 11-22-1993 Tetanus + diphtheria + acellular pertussis vaccine (product) Tdap Booster [facility] Start: 11-22-1990 HIV screening [facility] Start: 11-22-1981 PNEUMOCOCCAL (1 - PCV) PNEUMOCOCCAL (1 - PCV) [facility] Start: 1975 HEPATITIS B (1 of 3 - 3-dose series) HEPATITIS B (1 of 3 - 3-dose series) [facility] Start: 1975 Screening for malignant neoplasm of colon Colonoscopy [facility] Patient Education After Knee Arthroscopy [facility] Work Phone: Patient referral [facility] Work Phone: Immunizations Immunization Date Immunization Notes Care Provider Enma cili 05-31-2020 influenza, injectabl e, quadrivalent, preservative free [facility] 05-31-2020 influenza virus vacc ine, unspecified formulation [facility] 05-12-2019 influenza, seasonal, injectable [facility] 07-09-2017 influenza, injectabl e, quadrivalent, contains preservative [facility] 06-07-2015 influenza, seasonal, injectable [facility] Payers Date Payer Category Payer Unknown 2024 Medicaid [id number] 2024 Self-pay [id number] 2021 Unknown [id number] 2018 Dental --Stand Alone DENTAL-C[employer] SOURCE MEDICAID Member Subscriber Plan / Payer (Effective 2018-Present) Name: Gali Correia Relation to Subscriber: Self Name: Gali Correia Payer ID: Not on file Group ID: Not on file Type: Medicaid HMO Address: [address] [address] [id number] 2018 Medicaid [id number] 2018 Medicare [id number] 2018 Medicare (Managed Care) [id number]. [id number] 2013 Medicare MEDICARE PART A B [id number] 1975 Unknown [id number] 1975 Unknown [id number] Medicare [id number] Medicare [id number] Unknown [id number] Unknown [id number] Unknown [id number] Social History Date Type Detail Facility Start: 06-04-2013 End: 12-26-2022 Tobacco smoking status NHIS Unknown if ever smoked [facility] Start: 1975 Sex Assigned At Female [facility] Start: 08-28-2018 End: 09-18-2018 Tobacco smoking status NHIS Occasional tobacco smoker [facility] History of tobacco use Cigarette Smoker [facility] Start: 08-28-2018 End: 10-16-2018 Cigarettes smoked current (pack per day) - Reported 0.5 [facility] Start: 08-28-2018 End: 09-18-2018 Tobacco use and exposure Smokeless tobacco non-user [facility] Start: 10-16-2018 End: 07-19-2022 Alcohol intake Current drinker of alcohol (finding) [facility] Start: 09-18-2018 History SDOH Alcohol Comment rare [facility] Start: 1975 Sex Assigned At [facility] on file [facility] Start: 07-19-2022 Tobacco smoking status NHIS Smokes tobacco daily [facility] Start: 07-09-2022 End: 07-19-2022 Exposure to SARS-CoV-2 (event) Not sure [facility] Start: 10-16-2018 Tobacco use panel [facility] Start: 06-13-2018 Sex Female (finding) [facility] Work Phone: NEGATED: Highlighted row [facility] Goals Date Patient Goal Desired Activity /State Functional Status Date Assessment Result Facility 11-13-2022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
== END | disposition home or self-care (01) ==
PROVIDERS: PCP Family Medicine; Referring Provider Family Medicine; Visit Provider Family Medicine
DX: E03.9 Hypothyroidism, unspecified (principal); E78.5 Hyperlipidemia, unspecified; M17.11 Unilateral primary osteoarthritis, right knee
CPT/HCPCS: 36415; 73564; 80053; 80061; 84439; 84443; 84481